=== PATIENT | male | born 1980 | race African-American/Black ===

== ENCOUNTER 2016-07-20 15:03 | Emergency (ER) | payer SELFPAY ==
[2016-07-20] MEDS ORDERED: ACETAMINOPHEN 325 MG TABLET PO ONE ×2 (15:36→20:29)
--- NOTE | 2016-07-20 15:36 | ER Document Report ---
ED Medical Screen (RME) - General Stated Complaint: THROAT PAIN Notes: Patient complains of severe sore throat for 3 weeks. Patient states he has a history of strep patient complains of chest congestion, with productive cough. Shortness of breath with coughing. Did not know he had a fever. States all symptoms have been ongoing for 3 weeks. Patient states he has occasional vomiting when he coughs. He thinks he might have pneumonia. I have greeted and performed a rapid initial assessment of this patient. A comprehensive ED assessment and evaluation of the patient, analysis of test results and completion of the medical decision making process will be conducted by additional ED providers. TRAVEL OUTSIDE OF THE [place] IN LAST 30 DAYS: No - Related Data Allergies/Adverse Reactions: No Known Allergies Allergy (Verified 07/20/16 15:35) Physical Exam - Vital signs Vitals: Temp Pulse Resp BP Pulse Ox 101.4 F H 114 H 14 142/93 H 95 07/20/16 15:06 07/20/16 15:06 07/20/16 15:06 07/20/16 15:06 07/20/16 15:06 - HEENT Notes: Oropharynx with moderate erythema, positive exudates. Lungs clear to auscultation, no respiratory distress. Course - Vital Signs Vital signs: Temp Pulse Resp BP Pulse Ox 101.4 F H 114 H 14 142/93 H 95 07/20/16 15:06 07/20/16 15:06 07/20/16 15:06 07/20/16 15:06 07/20/16 15:06
[2016-07-20] MEDS ORDERED: AZITHROMYCIN 250 MG TABLET PO ONE (19:46)
[2016-07-20] MEDS ORDERED: PREDNISONE 20 MG TABLET PO ONE (19:46)
[2016-07-20] MEDS ORDERED: IPRATROPIUM/ALBUTEROL 0.5-2.5 MG/3 ML AMPUL NEB ONE (19:46)
--- NOTE | 2016-07-20 19:46 | ER Document Report ---
HPI - HPI Patient complains to provider of: sore throat cough Onset: Other - 3 weeks Onset/Duration: Persistent Quality of pain: Achy Severity: Severe Pain Level: 5 Context: Patient presents to the emergency department with complaints of severe strep throat with shortness of breath coughing up sputum and severe pain when he coughs. Patient reports hot and cold chills unsure of fever. No c/o vomiting/ diarrhea. Denies past medical history. Has not been out of the country recently. Associated Symptoms: Productive cough, Fever, Sore throat Exacerbated by: Coughing, Deep breathing Relieved by: Denies Similar symptoms previously: No Recently seen / treated by doctor: No - DERM Skin Color: Normal Past Medical History - General Information source: Patient - Social History Smoking Status: Current Every Day Smoker Cigarette use (# per day): Yes Chew tobacco use (# tins/day): No Frequency of alcohol use: Occasional Drug Abuse: Cocaine, Marijuana Occupation: [employer] Lives with: Family Family History: Reviewed & Not Pertinent Patient has suicidal ideation: No Patient has homicidal ideation: No - Medical History Medical History: Negative Renal/ Medical History: Denies: Hx Peritoneal Dialysis Surgical Hx: Negative Vertical Provider Document - CONSTITUTIONAL Agree With Documented VS: Yes Exam Limitations: No Limitations General Appearance: WD/WN, No Apparent Distress - INFECTION CONTROL TRAVEL OUTSIDE OF THE [place] IN LAST 30 DAYS: No - HEENT HEENT: Atraumatic, Normocephalic, Pharyngeal Erythema - No peritonsillar abscess good clear voice no trismus. negative: Conjuctival Injection, Pharyngeal Exudate, Tympanic Membrane Red, Tympanic Membrane Bulging - NECK Neck: Normal Inspection, Supple. negative: Lymphadenopathy-Left, Lymphadenopathy-Right - RESPIRATORY Respiratory: No Respiratory Distress, Wheezing O2 Sat by Pulse Oximetry: 95 - CARDIOVASCULAR Cardiovascular: Regular Rhythm, Tachycardia - GI/ABDOMEN Gastrointestinal: Abdomen Soft, Abdomen Non-Tender - BACK Back: Normal Inspection - MUSCULOSKELETAL/EXTREMETIES Musculoskeletal/Extremeties: CARMINE LEBRON - NEURO Level of Consciousness: Awake, Alert, Appropriate Motor/Sensory: No Motor Deficit - DERM Integumentary: Warm, Dry Course - Re-evaluation Re-evalutation: 07/20/16 19:51 X-ray reviewed with Dr. bates. Airspace disease noted as pneumonia - Vital Signs Vital signs: Temp Pulse Resp BP Pulse Ox 101.4 F H 114 H 14 142/93 H 95 07/20/16 15:06 07/20/16 15:06 07/20/16 15:06 07/20/16 15:06 07/20/16 15:06 - Diagnostic Test Radiology reviewed: Image reviewed, Reports reviewed - IMPRESSION: Minimal airspace disease right middle lobe. Discharge - Discharge Clinical Impression: Cough, Sore throat, Elevated blood pressure reading Pneumonia Qualifiers: Pneumonia type: due to unspecified organism Laterality: right Lung location: middle lobe of lung Qualified Code(s): J18.1 - Lobar pneumonia, unspecified organism Condition: Stable Disposition: HOME, SELF-CARE Instructions: Sore Throat ([facility]), Oral Narcotic Medication ([facility]), Azithromycin ( [facility]), Steroid Medication, Pneumonia ([facility]) Additional Instructions: *You have been evaluated for a cough, pneumonia, sore throat, elevated blood pressure reading *Take medication as prescribed *With smoking *Increase fluids *Monitor your temperature, take Tylenol as indicated *Follow up with a primary care provider within one week for a recheck *Return to ED for increasing fever, cough, worsening condition, changes, needs, concerns Monitor your blood pressure. Your blood pressure was elevated today. This may be because you were anxious, in pain or because you need medication. It is important to follow up with your primary care provider for full evaluation. Prescriptions: Azithromycin [Zithromax] 250 mg PO DAILY #4 tablet Prednisone [Deltasone] 60 mg PO DAILY #9 tablet Forms: Elevated Blood Pressure, Smoking Cessation Education, Return to Work
[2016-07-20] MEDS ORDERED: HYDROCODONE/ACETAMINOPHEN 5-325 MG 6 TAB/DSPK PO PRN (20:27)
[2016-07-20 20:54] VITALS: BP 130/67
== END 2016-07-20 20:51 | disposition home or self-care (01) ==
LOC: ER 15:03
DX: J18.1 Lobar pneumonia, unspecified organism (principal); J02.9 Acute pharyngitis, unspecified; R05 Cough; R03.0 Elevated blood-pressure reading, without diagnosis of hypertension; R06.02 Shortness of breath; R50.9 Fever, unspecified; R00.0 Tachycardia, unspecified; F17.210 Nicotine dependence, cigarettes, uncomplicated
CPT/HCPCS: 94640; 99283; 87070; 87880; 71020; J7512; J7620

== ENCOUNTER 2016-07-25 10:36 | Inpatient (IN) | payer SELFPAY ==
--- NOTE | 2016-07-25 10:55 | ER Document Report ---
ED Medical Screen (RME) - General TRAVEL OUTSIDE OF THE [place] IN LAST 30 DAYS: No <SAUL BURNS - Last Filed: 07/25/16 10:48> <DEYSI MCGOWAN - Last Filed: 08/01/16 10:46> - General Stated Complaint: CHEST PAIN Notes: 35 yo male cough, fever, chest pain. midsternal pain with breathing, coughing. Pt was diagnosed with pneumonia 5 days ago, treated with Z pack. no improvement. + fever 103. + hx/o NC age 27 resp effort nonlabored, + wheeze and rhonchi right lung [place]. tachy 125 (SAUL BURNS) - Related Data Allergies/Adverse Reactions: No Known Allergies Allergy (Verified 07/25/16 10:51) Past Medical History Renal/ Medical History: Denies: Hx Peritoneal Dialysis <SAUL BURNS - Last Filed: 07/25/16 10:48> Course - Laboratory Result Diagrams: 07/26/16 07:53 07/28/16 13:35 <DEYSI MCGOWAN - Last Filed: 08/01/16 10:46> - Vital Signs Vital signs: Temp Pulse Resp BP Pulse Ox 97.5 F 80 16 145/90 H 99 07/30/16 10:04 07/30/16 10:04 07/30/16 10:04 07/30/16 10:04 07/30/16 10:04 - Laboratory Laboratory results interpreted by me: 07/25/16 07/25/16 07/25/16 11:23 11:23 12:11 WBC 19.4 H RBC 5.85 H MCV 79 L MCH 25.3 L RDW 14.2 H Plt Count 617 H Seg Neutrophils % 80.9 H Lymphocytes % 9.1 L Absolute Neutrophils 15.8 H Absolute Monocytes 1.8 H VBG pH 7.43 H Sodium 136.6 L Chloride 95 L Glucose 198 H AST 90 H ALT 291 H Doctor's Discharge <SAUL BURNS - Last Filed: 07/25/16 10:48> <DEYSI MCGOWAN - Last Filed: 08/01/16 10:46> - Discharge Clinical Impression: Pneumonia, Influenza A, Sepsis Condition: Stable Disposition: ADMITTED INPATIENT
[2016-07-25 11:39] LABS: ABSOLUTE BASOPHILS # (AUTO) 0.1 10^3/uL (0.0-0.2); ABSOLUTE EOSINOPHILS # (AUTO) 0.1 10^3/uL (0.0-0.6); ABSOLUTE LYMPHOCYTES (AUTO) 1.8 10^3/uL (0.5-4.7); ABSOLUTE MONOCYTES (AUTO) 1.8 10^3/uL (0.1-1.4); ABSOLUTE NEUT (AUTO) 15.8 10^3/uL (1.7-8.2); BASOPHILS % (AUTO) 0.3 % (0-2); EOSINOPHILS % (AUTO) 0.4 % (0-6); HEMATOCRIT 46.2 % (37.9-51.0); HEMOGLOBIN 14.8 g/dL (13.5-17.0); HGB HCT DIFFERENCE -1.8; LYMPHOCYTES % (AUTO) 9.1 % (13-45); MEAN CORPUSCULAR HEMOGLOBIN 25.3 pg (27.0-33.4); MEAN CORPUSCULAR VOLUME 79 fl (80-97); MONOCYTES % (AUTO) 9.3 % (3-13); RED BLOOD COUNT 5.85 10^6/uL (4.35-5.55); RED CELL DISTRIBUTION WIDTH 14.2 % (11.5-14.0); SEGMENTED NEUTROPHILS % (AUTO) 80.9 % (42-78); WHITE BLOOD COUNT 19.4 10^3/uL (4.0-10.5)
[2016-07-25] MEDS ORDERED: AZITHROMYCIN INJ 500 MG VIAL IV ONE (12:05)
[2016-07-25] MEDS ORDERED: ACETAMINOPHEN 325 MG TABLET PO ONE (12:08)
--- NOTE | 2016-07-25 12:08 | ER Document Report ---
ED Respiratory Problem - General Chief Complaint: Breathing Difficulty Stated Complaint: CHEST PAIN Notes: The patient is a 35-year-old male, current smoker, presents with 3 weeks of increasing shortness of breath and fevers. He is also having chest pain when he coughs. He was seen in the emergency room 5 days ago and diagnosed with pneumonia. He finished his azithromycin, but he still feels increasing shortness of breath. He did not get his flu shot this year. Denies leg swelling, hemoptysis, nausea, vomiting, chest pain at rest, back pain, abdominal pain or recent travel. TRAVEL OUTSIDE OF THE [place] IN LAST 30 DAYS: No - Related Data Allergies/Adverse Reactions: No Known Allergies Allergy (Verified 07/25/16 10:51) Past Medical History - General Information source: Patient - Social History Smoking Status: Current Every Day Smoker Chew tobacco use (# tins/day): No Frequency of alcohol use: None Drug Abuse: Marijuana Family History: Reviewed & Not Pertinent Patient has suicidal ideation: No Patient has homicidal ideation: No Renal/ Medical History: Denies: Hx Peritoneal Dialysis Review of Systems - Review of Systems Notes: REVIEW OF SYSTEMS: CONSTITUTIONAL: -fevers, -chills EENT: -eye pain, -difficulty swallowing, +nasal congestion CARDIOVASCULAR: +chest pain, -syncope. RESPIRATORY: +cough, +SOB GASTROINTESTINAL: -abdominal pain, -nausea, -vomiting, -diarrhea GENITOURINARY: -dysuria, -hematuria MUSCULOSKELETAL: -back pain, -neck pain SKIN: -rash or skin lesions. HEMATOLOGIC: -easy bruising or bleeding. LYMPHATIC: -swollen, enlarged glands. NEUROLOGICAL: -altered mental status or loss of consciousness, -headache, - neurologic symptoms PSYCHIATRIC: -anxiety, -depression. ALL OTHER SYSTEMS REVIEWED AND NEGATIVE. Physical Exam - Vital signs Vitals: Temp Pulse Resp BP Pulse Ox 101.0 F H 125 H 24 H 124/64 92 07/25/16 10:44 07/25/16 10:44 07/25/16 10:44 07/25/16 10:44 07/25/16 10:44 - Notes Notes: PHYSICAL EXAMINATION: GENERAL: No acute distress. HEAD: Atraumatic, normocephalic. EYES: Pupils equal round and reactive to light, extraocular movements intact, sclera anicteric, conjunctiva are normal. ENT: Clear rhinnorhea, nares patent, oropharynx clear without exudates. Moist mucous membranes. NECK: Normal range of motion, supple without lymphadenopathy LUNGS: Crackles right lower lobes, mildly tachypneic, no respiratory distress HEART: Tachycardic ABDOMEN: Soft, nontender, normoactive bowel sounds. No guarding, no rebound. No masses appreciated. EXTREMITIES: Normal range of motion, no pitting or edema. No cyanosis. NEUROLOGICAL: Cranial nerves grossly intact. Normal speech, normal gait. Normal sensory, motor, and reflex exams. PSYCH: Normal mood, normal affect. SKIN: Warm, Dry, normal turgor, no rashes or lesions noted. Course - Re-evaluation Re-evalutation: 07/25/16 13:34 Patient with worsening pneumonia compared to his x-ray 5 days ago , despite finishing a course of azithromycin. He is flu A positive here. Will begin IV treatment for MRSA pneumonia and admit. Patient's slight hypoxia (91% on RA) improved to 98% on 2 L nasal cannula. No respiratory distress at this time. Spoke to Dr. Cassidy and she has accepted patient as inpatient telemetry. - Vital Signs Vital signs: Temp Pulse Resp BP Pulse Ox 101.0 F H 125 H 24 H 124/64 92 07/25/16 10:44 07/25/16 10:44 07/25/16 10:44 07/25/16 10:44 07/25/16 10:44 - Laboratory Result Diagrams: 07/25/16 11:23 07/25/16 11:23 Laboratory results interpreted by me: 07/25/16 07/25/16 07/25/16 11:23 11:23 12:11 WBC 19.4 H RBC 5.85 H MCV 79 L MCH 25.3 L RDW 14.2 H Plt Count 617 H Seg Neutrophils % 80.9 H Lymphocytes % 9.1 L Absolute Neutrophils 15.8 H Absolute Monocytes 1.8 H VBG pH 7.43 H Sodium 136.6 L Chloride 95 L Glucose 198 H AST 90 H ALT 291 H - Diagnostic Test Radiology reviewed: Image reviewed, Reports reviewed Radiology results interpreted by me: CXR: Consolidation worrisome for pneumonia in the lateral segment right middle lobe, and in the right posterior lower lobe in the posterior costophrenic sulcus. Critical Care Note - Critical Care Note Total time excluding time spent on procedures (mins): 35 Discharge - Discharge Clinical Impression: Influenza A Pneumonia Qualifiers: Pneumonia type: due to unspecified organism Laterality: right Lung location: middle lobe of lung Qualified Code(s): J18.1 - Lobar pneumonia, unspecified organism Sepsis Qualifiers: Sepsis type: sepsis due to unspecified organism Qualified Code(s): A41.9 - Sepsis, unspecified organism Condition: Stable Disposition: ADMITTED INPATIENT Admitting Provider: Hospitalist - Dr. Cassidy Unit Admitted: Telemetry
[2016-07-25] MEDS ORDERED: LEVOFLOXACIN 750 MG/D5W RTU 150 ML IV PRN (12:13)
[2016-07-25 12:15] LABS: ALANINE AMINOTRANSFERASE 291 U/L (21-72); ALBUMIN 3.7 g/dL (3.5-5.0); ALKALINE PHOSPHATASE 115 U/L (38-126); ANION GAP 13 (5-19); ASPARTATE AMINO TRANSFERASE 90 U/L (17-59); BILIRUBIN,TOTAL 0.7 mg/dL (0.2-1.3); BLOOD UREA NITROGEN 13 mg/dL (7-20); CALCIUM 9.6 mg/dL (8.4-10.2); CARBON DIOXIDE 29 mmol/L (22-30); CHLORIDE 95 mmol/L (98-107); CREATININE RESULT 0.95 mg/dL (0.52-1.25); GLUCOSE 198 mg/dL (75-110); POTASSIUM 4.7 mmol/L (3.6-5.0); SODIUM 136.6 mmol/L (137-145); TOTAL PROTEIN 7.3 g/dL (6.3-8.2)
[2016-07-25] MEDS: NORMAL SALINE 1000 ML 1,000 ML IV PRN ×3 (12:23→17:31)
[2016-07-25 12:24] LABS: VENOUS BLOOD HCO3 26.5 mmol/L (20-32); VENOUS BLOOD PCO2 40.8 mmHg (35-63); VENOUS BLOOD PH 7.43 (7.30-7.42)
[2016-07-25] MEDS ORDERED: PIPERACILLIN/TAZOBACTAM 4.5 GM VIAL IV ONE (13:22)
[2016-07-25] MEDS ORDERED: VANCOMYCIN HCL INJ 1000 MG VIAL IV ONE (13:22)
[2016-07-25] MEDS ORDERED: ACETAMINOPHEN 325 MG TABLET PO PRN (14:07)
[2016-07-25] MEDS ORDERED: VANCOMYCIN HCL 0 MG in DEXTROSE 5%-WATER 250 ML IV NR (14:15)
[2016-07-25] MEDS ORDERED: PHARMACY COMMUNICATION ORDER MC NR (14:15)
[2016-07-25 15:07] LABS: APPEARANCE,URINE CLEAR; BILIRUBIN,URINE NEGATIVE (NEGATIVE); GLUCOSE, URINE NEGATIVE (NEGATIVE); KETONES,URINE NEGATIVE (NEGATIVE); LEUKOCYTE ESTERASE,URINE NEGATIVE (NEGATIVE); NITRITE,URINE NEGATIVE (NEGATIVE); PROTEIN,URINE NEGATIVE (NEGATIVE); URINE SPECIFIC GRAVITY 1.009; UROBILINOGEN,URINE NEGATIVE mg/dL (<2.0)
[2016-07-25 15:21] LABS: URINE BARBITURATES SCREEN NEGATIVE; URINE METHADONE SCREEN NEGATIVE; URINE OPIATES LOW NEGATIVE; URINE PHENCYCLIDINE SCREEN NEGATIVE
[2016-07-25] MEDS ORDERED: ENOXAPARIN SODIUM INJ 40 MG/0.4 ML DISP.SYRIN SUBCUT ONE (15:30)
[2016-07-25] MEDS ORDERED: IBUPROFEN 600 MG TABLET PO PRN (16:35)
--- NOTE | 2016-07-25 17:51 | PDOC H&P ---
History of Present Illness Admission Date/PCP: 07/25/16 14:07 History of Present Illness: KALYN COLLINS is a 35 year old male with no significant past medical history who presents to the emergency department with complaints of 3 weeks of cough and shortness of breath. Patient reports that his prodrome began with a sore throat that he reports was slightly improved with penicillin initially that he had from an old urinary tract infection, but began to worsen. He reports that he has a cough productive of green yellow and dominguez sputum. He reports over the last 72 hours he's been having bodyaches, worsening cough, and muscle pain. Patient presented here to the emergency department 4 days ago and was placed on azithromycin for pneumonia. Patient currently is here and found to have influenza as well as a worsening pneumonia now requiring oxygen. He is referred to hospital service for this. Past Medical History Medical History: None Past Surgical History Past Surgical History: Reports: None Social History Smoking Status: Current Some Day Smoker Frequency of Alcohol Use: Rare Hx Recreational Drug Use: Yes Drugs: Cocaine, Marijuana Hx Prescription Drug Abuse: No - Advance Directive Resuscitation Status: Full Code Surrogate healthcare decision maker:: Mother Family History Family History: Malignancy Parental Family History Reviewed: Yes Children Family History Reviewed: Yes Sibling(s) Family History Reviewed.: Yes Medication/Allergy Home Medications: No Home Medications 07/25/16 Allergies/Adverse Reactions: No Known Allergies Allergy (Verified 07/25/16 10:51) Review of Systems Constitutional: PRESENT: chills, fatigue, fever(s), headache(s). ABSENT: weight gain, weight loss Eyes: ABSENT: visual disturbances Ears: ABSENT: hearing changes Nose, Mouth, and Throat: PRESENT: sore throat Cardiovascular: ABSENT: chest pain, dyspnea on exertion, edema, orthropnea, palpitations Respiratory: PRESENT: cough, sputum. ABSENT: dyspnea, hemoptysis Gastrointestinal: ABSENT: abdominal pain, constipation, diarrhea, dysphagia, heartburn, hematemesis, hematochezia, melena, nausea, vomiting Genitourinary: ABSENT: dysuria, hematuria Musculoskeletal: ABSENT: joint swelling Integumentary: PRESENT: rash - On head chest and leg. ABSENT: wounds Neurological: ABSENT: abnormal gait, abnormal speech, confusion, dizziness, focal weakness, syncope Psychiatric: ABSENT: anxiety, depression, homidical ideation, suicidal ideation Endocrine: ABSENT: cold intolerance, heat intolerance, polydipsia, polyuria Hematologic/Lymphatic: ABSENT: easy bleeding, easy bruising Physical Exam Vital Signs: Temp Pulse Resp BP Pulse Ox 101.0 F H 125 H 22 H 121/87 H 98 07/25/16 10:44 07/25/16 10:44 07/25/16 14:01 07/25/16 14:01 07/25/16 14:01 General appearance: PRESENT: mild distress - Acutely ill-appearing, well- developed, well-nourished Head exam: PRESENT: atraumatic, normocephalic Eye exam: PRESENT: conjunctiva pink, EOMI, PERRLA. ABSENT: scleral icterus Ear exam: PRESENT: normal external ear exam Mouth exam: PRESENT: dry mucosa, tongue midline Neck exam: PRESENT: lymphadenopathy. ABSENT: JVD, thyromegaly, tracheal deviation Respiratory exam: PRESENT: rhonchi - Left lower lobe, symmetrical, unlabored. ABSENT: accessory muscle use, rales, tachypnea, wheezes Cardiovascular exam: PRESENT: RRR, +S1, +S2. ABSENT: diastolic murmur, gallop, rubs, systolic murmur Pulses: PRESENT: normal dorsalis pedis pul Vascular exam: PRESENT: normal capillary refill GI/Abdominal exam: PRESENT: normal bowel sounds, soft. ABSENT: distended, firm , guarding, mass, Oates's sign, organolmegaly, rebound, rigid, tenderness Rectal exam: PRESENT: deferred Extremities exam: PRESENT: full ROM. ABSENT: calf tenderness, clubbing, pedal edema Neurological exam: PRESENT: alert, awake, oriented to person, oriented to place , oriented to time, oriented to situation, CN II-XII grossly intact. ABSENT: motor sensory deficit Psychiatric exam: PRESENT: appropriate affect, normal mood. ABSENT: homicidal ideation, suicidal ideation Skin exam: PRESENT: dry, intact, rash - Circular rash with central area of clearing without erythema, scaly, warm. ABSENT: cyanosis Results Laboratory Results: 07/25/16 14:40 Urine Color STRAW Urine Appearance CLEAR Urine pH 6.0 Ur Specific [place] 1.009 Urine Protein NEGATIVE Urine Glucose (UA) NEGATIVE Urine Ketones NEGATIVE Urine Blood NEGATIVE Urine Nitrite NEGATIVE Ur Leukocyte Esterase NEGATIVE Impressions: Chest X-Ray 07/25/16 10:57 IMPRESSION: Consolidation worrisome for pneumonia in the lateral segment right middle lobe, and in the right posterior lower lobe in the posterior costophrenic sulcus Assessment & Plan - Diagnosis (1) Sepsis Qualifiers: Sepsis type: sepsis due to unspecified organism Qualified Code(s): A41.9 - Sepsis, unspecified organism Is this a current diagnosis for this admission?: YesPlan: Underlying sepsis due to pneumonia as well as influenza a. (2) Pneumonia Qualifiers: Pneumonia type: due to unspecified organism Laterality: right Lung location: middle lobe of lung Qualified Code(s): J18.1 - Lobar pneumonia , unspecified organism Is this a current diagnosis for this admission?: YesPlan: Patient has a right middle lobe pneumonia, clinically on physical examination he also sounds as though he has multilobar involvement particularly with left lower lobe. Have initiated patient on vancomycin with concern for MRSA in light of influenza, Zosyn as patient did present with a right middle lobe infiltrate and does describe to some GI symptoms, and also to Levaquin for atypical coverage. At this time it is difficult to tell the etiology of patient 's pneumonic process. Patient also does report that he last smoked cocaine one month ago. Will check patient for HIV. (3) Influenza A Is this a current diagnosis for this admission?: YesPlan: We'll place patient on Tamiflu. Droplet precautions (4) Hyperglycemia, drug-induced Is this a current diagnosis for this admission?: YesPlan: We'll check hemoglobin A1c. Patient was prescribed a steroid here 4 days ago. He does have acanthosis nigricans (5) Tobacco abuse Is this a current diagnosis for this admission?: YesPlan: Patient has been counseled on cessation and offered nicotine replacement. (6) Tinea corporis Is this a current diagnosis for this admission?: YesPlan: We'll place code Chlortrimazole ointment on twice a day to affected leg and abdomen. (7) Tinea capitis Is this a current diagnosis for this admission?: Yes - Time Time Spent: 50 to 70 Minutes Smoking Cessation Education: 3 to 10 minutes Medications reviewed and adjusted accordingly: Yes Anticipated discharge: Home Within: within 72 hours - Inpatient Certification Based on my medical assessment, after consideration of the patient's comorbidities, presenting symptoms, or acuity I expect that the services needed warrant INPATIENT care.: Yes I certify that my determination is in accordance with my understanding of Medicare's requirements for reasonable and necessary INPATIENT services [42 CFR 412.3e].: Yes Medical Necessity: Failure to Improve With Outpatient Therapy, Need For IV Fluids, Need for Nebulizer Therapy and Monitoring of Response, Need for IV Antibiotics Post Hospital Care: D/C Sketcher Documentation
[2016-07-25] MEDS ORDERED: OSELTAMIVIR PHOSPHATE 75 MG CAPSULE PO SCH (18:00)
[2016-07-25 18:54] LABS: ADD HIVPANEL? NO; HIV (1 AND 2) ANTIBODY NEGATIVE (NEGATIVE)
[2016-07-25] MEDS: ALBUTEROL SULFATE 0.083% NEB 2.5 MG/3 ML AMPUL NEB SCH (20:33)
[2016-07-25] MEDS: GUAIFENESIN 600 MG TABLET.SA PO SCH (21:54)
[2016-07-25] MEDS: FAMOTIDINE 20 MG TABLET PO SCH (21:54)
[2016-07-25] MEDS: PIPERACILLIN SODIUM/TAZOBACTAM 3.375 GM in NORMAL SALINE 100 ML IV SCH (21:55)
[2016-07-25] MEDS: CLOTRIMAZOLE 1% CREAM 15 GM TP SCH (21:55)
[2016-07-25] MEDS: VANCOMYCIN HCL 1,000 MG in DEXTROSE 5%-WATER 250 ML IV SCH (22:40)
[2016-07-26] MEDS: OXYCODONE-ACETAMINOPHEN 5-325 MG TABLET PO PRN ×3 (01:26→22:10)
[2016-07-26] MEDS ORDERED: INFLUENZA ADLT QUAD (36MOS+) 2016-17 VAC 0.5 ML SYR IM PRN (03:17)
[2016-07-26] MEDS: NORMAL SALINE 1000 ML 1,000 ML IV PRN (03:49)
[2016-07-26] MEDS: PIPERACILLIN SODIUM/TAZOBACTAM 3.375 GM in NORMAL SALINE 100 ML IV SCH ×3 (03:49→14:34)
[2016-07-26] MEDS: VANCOMYCIN HCL 1,000 MG in DEXTROSE 5%-WATER 250 ML IV SCH ×2 (05:16→14:33)
[2016-07-26 05:47] LABS: ANION GAP 11 (5-19); BLOOD UREA NITROGEN 12 mg/dL (7-20); CALCIUM 9.1 mg/dL (8.4-10.2); CARBON DIOXIDE 29 mmol/L (22-30); CHLORIDE 102 mmol/L (98-107); CREATININE RESULT 0.99 mg/dL (0.52-1.25); GLUCOSE 128 mg/dL (75-110); POTASSIUM 4.9 mmol/L (3.6-5.0)
[2016-07-26 08:10] LABS: ABSOLUTE BASOPHILS # (AUTO) 0.1 10^3/uL (0.0-0.2); ABSOLUTE EOSINOPHILS # (AUTO) 0.3 10^3/uL (0.0-0.6); ABSOLUTE LYMPHOCYTES (AUTO) 2.4 10^3/uL (0.5-4.7); BASOPHILS % (AUTO) 0.7 % (0-2); HEMATOCRIT 39.7 % (37.9-51.0); HEMOGLOBIN 13.1 g/dL (13.5-17.0); HGB HCT DIFFERENCE -0.4; LYMPHOCYTES % (AUTO) 17.2 % (13-45); MEAN CORPUSCULAR HEMOGLOBIN 26.1 pg (27.0-33.4); MEAN CORPUSCULAR VOLUME 79 fl (80-97); MONOCYTES % (AUTO) 14.6 % (3-13); RED BLOOD COUNT 5.02 10^6/uL (4.35-5.55); RED CELL DISTRIBUTION WIDTH 14.2 % (11.5-14.0); SEGMENTED NEUTROPHILS % (AUTO) 65.5 % (42-78); WHITE BLOOD COUNT 13.8 10^3/uL (4.0-10.5)
[2016-07-26 08:21] LABS: ANION GAP 8 (5-19); BLOOD UREA NITROGEN 12 mg/dL (7-20); CARBON DIOXIDE 30 mmol/L (22-30); CHLORIDE 103 mmol/L (98-107); CREATININE RESULT 0.85 mg/dL (0.52-1.25); GLUCOSE 162 mg/dL (75-110); POTASSIUM 4.4 mmol/L (3.6-5.0); SODIUM 140.5 mmol/L (137-145)
[2016-07-26] MEDS: ALBUTEROL SULFATE 0.083% NEB 2.5 MG/3 ML AMPUL NEB SCH ×3 (09:00→20:55)
[2016-07-26] MEDS: LEVOFLOXACIN 750 MG TABLET PO SCH (09:34)
[2016-07-26] MEDS: FAMOTIDINE 20 MG TABLET PO SCH ×2 (09:34→22:11)
[2016-07-26] MEDS: ENOXAPARIN SODIUM INJ 40 MG/0.4 ML DISP.SYRIN SUBCUT SCH (09:34)
[2016-07-26] MEDS: GUAIFENESIN 600 MG TABLET.SA PO SCH ×2 (09:34→22:00)
[2016-07-26] MEDS: CLOTRIMAZOLE 1% CREAM 15 GM TP SCH ×2 (09:35→22:10)
[2016-07-26] MEDS ORDERED: CEFTRIAXONE 1 GM/D5W RTU 50 ML IV SCH (10:00)
[2016-07-26] MEDS: OSELTAMIVIR PHOSPHATE 75 MG CAPSULE PO SCH ×2 (11:13→22:10)
--- NOTE | 2016-07-26 11:18 | EKG REPORT ---
SEVERITY:- BORDERLINE ECG - SINUS TACHYCARDIA PROBABLE LEFT ATRIAL ABNORMALITY : Confirmed by: Bianca Quesada 26-Jul-2016 11:17:04
[2016-07-26 14:14] LABS: CREATININE RESULT 0.88 mg/dL (0.52-1.25)
--- NOTE | 2016-07-26 14:46 | PDOC PROGRESS REPORT ---
Subjective Progress Note for:: 07/26/16 Subjective:: Patient reports he's feeling significantly improved today. Patient denies chest pain, shortness of breath, abdominal pain, nausea, vomiting, fevers, chills, diarrhea, constipation, headache, new onset weakness. Physical Exam Vital Signs: Temp Pulse Resp BP Pulse Ox 98.5 F 91 19 135/73 H 98 07/26/16 11:39 07/26/16 14:00 07/26/16 11:39 07/26/16 11:39 07/26/16 11:39 Intake & Output 07/25/16 07/26/16 07/27/16 06:59 06:59 06:59 Intake Total 1228 592 Balance 1228 592 Weight 96.2 kg Exam: General: Awake alert and oriented x3, no acute respiratory distress HEENT: AT/NC, PERRL, EOMI, oropharynx is moist, pink, no scleral icterus, no conjunctival injection Neck: No JVD, trachea midline Chest: Occasional Rhonchi CV: Regular rate and rhythm, normal S1 and S2, no murmur, rub, or gallop Abdomen: Soft, nontender to palpation, nondistended, active bowel sounds; no rebound, rigidity, or guarding Extremities: No cyanosis, clubbing or edema Neuro: Cranial nerves II through XII are grossly intact without focal deficits; awake alert and orientedx3 Psych: Normal mood and affect Results Laboratory Results: 07/26/16 07:53 07/26/16 13:49 07/25/16 07/26/16 07/26/16 14:40 05:13 07:53 WBC 13.8 H RBC 5.02 Hgb 13.1 L Hct 39.7 MCV 79 L MCH 26.1 L MCHC 33.0 RDW 14.2 H Plt Count 467 H Seg Neutrophils % 65.5 Lymphocytes % 17.2 Monocytes % 14.6 H Eosinophils % 2.0 Basophils % 0.7 Absolute Neutrophils 9.0 H Absolute Lymphocytes 2.4 Absolute Monocytes 2.0 H Absolute Eosinophils 0.3 Absolute Basophils 0.1 Sodium 142.0 Potassium 4.9 Chloride 102 Carbon Dioxide 29 Anion Gap 11 BUN 12 Creatinine 0.99 Est GFR ( Amer) > 60 Est GFR (Non-Af Amer) > 60 Glucose 128 H Calcium 9.1 Urine Color STRAW Urine Appearance CLEAR Urine pH 6.0 Ur Specific [place] 1.009 Urine Protein NEGATIVE Urine Glucose (UA) NEGATIVE Urine Ketones NEGATIVE Urine Blood NEGATIVE Urine Nitrite NEGATIVE Ur Leukocyte Esterase NEGATIVE 07/26/16 07/26/16 07:53 13:49 WBC RBC Hgb Hct MCV MCH MCHC RDW Plt Count Seg Neutrophils % Lymphocytes % Monocytes % Eosinophils % Basophils % Absolute Neutrophils Absolute Lymphocytes Absolute Monocytes Absolute Eosinophils Absolute Basophils Sodium 140.5 Potassium 4.4 Chloride 103 Carbon Dioxide 30 Anion Gap 8 BUN 12 Creatinine 0.85 0.88 Est GFR ( Amer) > 60 > 60 Est GFR (Non-Af Amer) > 60 > 60 Glucose 162 H Calcium 9.0 Urine Color Urine Appearance Urine pH Ur Specific [place] Urine Protein Urine Glucose (UA) Urine Ketones Urine Blood Urine Nitrite Ur Leukocyte Esterase Impressions: Chest X-Ray 07/25/16 10:57 IMPRESSION: Consolidation worrisome for pneumonia in the lateral segment right middle lobe, and in the right posterior lower lobe in the posterior costophrenic sulcus Assessment & Plan - Diagnosis (1) Sepsis Qualifiers: Sepsis type: sepsis due to unspecified organism Qualified Code(s): A41.9 - Sepsis, unspecified organism Is this a current diagnosis for this admission?: YesPlan: Underlying sepsis due to pneumonia as well as influenza a. (2) Pneumonia Qualifiers: Pneumonia type: due to unspecified organism Laterality: right Lung location: middle lobe of lung Qualified Code(s): J18.1 - Lobar pneumonia , unspecified organism Is this a current diagnosis for this admission?: YesPlan: Patient has a right middle lobe pneumonia, clinically on physical examination he also sounds as though he has multilobar involvement particularly with left lower lobe. Have initiated patient on vancomycin with concern for MRSA in light of influenza, and also to Levaquin for atypical coverage. At this time it is difficult to tell the etiology of patient's pneumonic process. Patient also does report that he last smoked cocaine one month ago. HIV is negative. Stop Zosyn. Patient reports that his indigestion-like symptoms are not profound. (3) Influenza A Is this a current diagnosis for this admission?: YesPlan: We'll place patient on Tamiflu. Droplet precautions (4) Tobacco abuse Is this a current diagnosis for this admission?: YesPlan: Patient has been counseled on cessation and offered nicotine replacement. (5) Tinea corporis Is this a current diagnosis for this admission?: Yes (6) Tinea capitis Is this a current diagnosis for this admission?: Yes (7) Prediabetes Is this a current diagnosis for this admission?: YesPlan: On presentation patient was found to have impaired glucose and hemoglobin A1c reveals 6. Patient additionally has acanthosis nigricans on his neck. - Time Critical Time spent with patient: 35 or more minutes Medications reviewed and adjusted accordingly: Yes Anticipated discharge: Home Within: within 48 hours
[2016-07-26] MEDS: BENZONATATE 100 MG CAPSULE PO PRN (15:45)
[2016-07-26] MEDS: PHENOL/SODIUM PHENOLATE 100 SPRAY/177 ML BOTTLE PO PRN (15:49)
[2016-07-26] MEDS ORDERED: ALBUTEROL SULFATE 0.083% NEB 2.5 MG/3 ML AMPUL NEB ONE (16:12)
[2016-07-26] MEDS: VANCOMYCIN HCL 1,500 MG in DEXTROSE 5%-WATER 250 ML IV SCH (22:17)
[2016-07-27] MEDS: VANCOMYCIN HCL 1,500 MG in DEXTROSE 5%-WATER 250 ML IV SCH ×3 (06:04→21:12)
[2016-07-27] MEDS: BENZONATATE 100 MG CAPSULE PO PRN ×2 (06:22→16:07)
[2016-07-27] MEDS: ALBUTEROL SULFATE 0.083% NEB 2.5 MG/3 ML AMPUL NEB SCH ×2 (08:54→14:11)
[2016-07-27] MEDS: ENOXAPARIN SODIUM INJ 40 MG/0.4 ML DISP.SYRIN SUBCUT SCH (09:19)
[2016-07-27] MEDS: CLOTRIMAZOLE 1% CREAM 15 GM TP SCH ×2 (09:19→22:00)
[2016-07-27] MEDS: LEVOFLOXACIN 750 MG TABLET PO SCH (09:20)
[2016-07-27] MEDS: FAMOTIDINE 20 MG TABLET PO SCH ×2 (09:20→21:12)
[2016-07-27] MEDS: OSELTAMIVIR PHOSPHATE 75 MG CAPSULE PO SCH ×2 (09:20→21:12)
[2016-07-27] MEDS: GUAIFENESIN 600 MG TABLET.SA PO SCH ×2 (09:21→21:14)
[2016-07-27] MEDS: OXYCODONE-ACETAMINOPHEN 5-325 MG TABLET PO PRN ×3 (09:27→21:12)
--- NOTE | 2016-07-27 16:53 | PDOC PROGRESS REPORT ---
Subjective Progress Note for:: 07/27/16 Subjective:: Patient reports she's feeling significantly better. Patient denies chest pain, shortness of breath, abdominal pain, nausea, vomiting, fevers, chills, diarrhea , constipation, headache, new onset weakness. Physical Exam Vital Signs: Temp Pulse Resp BP Pulse Ox 98.5 F 104 H 16 149/84 H 92 07/27/16 03:44 07/27/16 03:44 07/27/16 03:44 07/27/16 03:44 07/27/16 03:44 Intake & Output 07/26/16 07/27/16 07/28/16 06:59 06:59 06:59 Intake Total 1228 3331 Balance 1228 3331 Weight 96.2 kg 96.4 kg Exam: General: Awake alert and oriented x3, no acute respiratory distress HEENT: AT/NC, PERRL, EOMI, oropharynx is moist, pink, no scleral icterus, no conjunctival injection Neck: No JVD, trachea midline Chest: Occasional Rhonchi CV: Regular rate and rhythm, normal S1 and S2, no murmur, rub, or gallop Abdomen: Soft, nontender to palpation, nondistended, active bowel sounds; no rebound, rigidity, or guarding Extremities: No cyanosis, clubbing or edema Neuro: Cranial nerves II through XII are grossly intact without focal deficits; awake alert and orientedx3 Psych: Normal mood and affect Results Laboratory Results: 07/26/16 07:53 07/26/16 13:49 07/26/16 07/26/16 07/26/16 07:53 07:53 13:49 WBC 13.8 H RBC 5.02 Hgb 13.1 L Hct 39.7 MCV 79 L MCH 26.1 L MCHC 33.0 RDW 14.2 H Plt Count 467 H Seg Neutrophils % 65.5 Lymphocytes % 17.2 Monocytes % 14.6 H Eosinophils % 2.0 Basophils % 0.7 Absolute Neutrophils 9.0 H Absolute Lymphocytes 2.4 Absolute Monocytes 2.0 H Absolute Eosinophils 0.3 Absolute Basophils 0.1 Sodium 140.5 Potassium 4.4 Chloride 103 Carbon Dioxide 30 Anion Gap 8 BUN 12 Creatinine 0.85 0.88 Est GFR ( Amer) > 60 > 60 Est GFR (Non-Af Amer) > 60 > 60 Glucose 162 H Calcium 9.0 Impressions: Chest X-Ray 07/25/16 10:57 IMPRESSION: Consolidation worrisome for pneumonia in the lateral segment right middle lobe, and in the right posterior lower lobe in the posterior costophrenic sulcus Assessment & Plan - Diagnosis (1) Sepsis Qualifiers: Sepsis type: sepsis due to unspecified organism Qualified Code(s): A41.9 - Sepsis, unspecified organism Is this a current diagnosis for this admission?: YesPlan: Underlying sepsis due to pneumonia as well as influenza a. (2) Pneumonia Qualifiers: Pneumonia type: due to unspecified organism Laterality: right Lung location: middle lobe of lung Qualified Code(s): J18.1 - Lobar pneumonia , unspecified organism Is this a current diagnosis for this admission?: YesPlan: Patient has a right middle lobe pneumonia, clinically on physical examination he also sounds as though he has multilobar involvement particularly with left lower lobe. Have initiated patient on vancomycin with concern for MRSA in light of influenza, and also to Levaquin for atypical coverage. At this time it is difficult to tell the etiology of patient's pneumonic process. Patient also does report that he last smoked cocaine one month ago. HIV is negative. Stop Zosyn. Patient reports that his indigestion-like symptoms are not profound. (3) Influenza A Is this a current diagnosis for this admission?: YesPlan: on Tamiflu. Droplet precautions (4) Tobacco abuse Is this a current diagnosis for this admission?: Yes (5) Tinea corporis Is this a current diagnosis for this admission?: Yes (6) Tinea capitis Is this a current diagnosis for this admission?: Yes (7) Prediabetes Is this a current diagnosis for this admission?: Yes - Time Time Spent with patient: 25-34 minutes Medications reviewed and adjusted accordingly: Yes Anticipated discharge: Home Within: within 48 hours
[2016-07-27] MEDS: PREDNISONE 20 MG TABLET PO SCH (17:37)
[2016-07-28] MEDS: BENZONATATE 100 MG CAPSULE PO PRN ×3 (00:12→21:42)
[2016-07-28] MEDS: OXYCODONE-ACETAMINOPHEN 5-325 MG TABLET PO PRN ×3 (01:06→19:53)
[2016-07-28] MEDS: VANCOMYCIN HCL 1,500 MG in DEXTROSE 5%-WATER 250 ML IV SCH ×3 (05:13→21:41)
[2016-07-28] MEDS: ENOXAPARIN SODIUM INJ 40 MG/0.4 ML DISP.SYRIN SUBCUT SCH (07:43)
[2016-07-28] MEDS: CLOTRIMAZOLE 1% CREAM 15 GM TP SCH ×2 (09:42→21:42)
[2016-07-28] MEDS: OSELTAMIVIR PHOSPHATE 75 MG CAPSULE PO SCH ×2 (09:43→21:42)
[2016-07-28] MEDS: PREDNISONE 20 MG TABLET PO SCH ×2 (09:43→17:33)
[2016-07-28] MEDS: FAMOTIDINE 20 MG TABLET PO SCH ×2 (09:43→21:42)
[2016-07-28] MEDS: LEVOFLOXACIN 750 MG TABLET PO SCH (09:43)
[2016-07-28] MEDS: GUAIFENESIN 600 MG TABLET.SA PO SCH ×2 (09:44→21:49)
[2016-07-28] MEDS: ALBUTEROL SULFATE 0.083% NEB 2.5 MG/3 ML AMPUL NEB PRN ×2 (10:33→20:04)
--- NOTE | 2016-07-28 20:41 | PDOC PROGRESS REPORT ---
Subjective Progress Note for:: 07/28/16 Subjective:: Patient is in the company of his daughter. Patient denies chest pain, shortness of breath, abdominal pain, nausea, vomiting , fevers, chills, diarrhea, constipation, headache, new onset weakness. Physical Exam Vital Signs: Temp Pulse Resp BP Pulse Ox 98.7 F 88 20 117/75 96 07/27/16 20:48 07/28/16 08:00 07/28/16 08:00 07/28/16 08:00 07/28/16 08:00 Intake & Output 07/27/16 07/28/16 07/29/16 06:59 06:59 06:59 Intake Total 3331 2435 Output Total 350 Balance 3331 2085 Weight 96.4 kg Exam: General: Awake alert and oriented x3, no acute respiratory distress HEENT: AT/NC, PERRL, EOMI, oropharynx is moist, pink, no scleral icterus, no conjunctival injection Neck: No JVD, trachea midline Chest: Clear to auscultation bilaterally CV: Regular rate and rhythm, normal S1 and S2, no murmur, rub, or gallop Abdomen: Soft, nontender to palpation, nondistended, active bowel sounds; no rebound, rigidity, or guarding Extremities: No cyanosis, clubbing or edema Neuro: Cranial nerves II through XII are grossly intact without focal deficits; awake alert and orientedx3 Psych: Normal mood and affect Results Laboratory Results: 07/26/16 07:53 07/26/16 13:49 Impressions: Chest X-Ray 07/25/16 10:57 IMPRESSION: Consolidation worrisome for pneumonia in the lateral segment right middle lobe, and in the right posterior lower lobe in the posterior costophrenic sulcus Assessment & Plan - Diagnosis (1) Sepsis Qualifiers: Sepsis type: sepsis due to unspecified organism Qualified Code(s): A41.9 - Sepsis, unspecified organism Is this a current diagnosis for this admission?: YesPlan: Underlying sepsis due to pneumonia as well as influenza a. (2) Pneumonia Qualifiers: Pneumonia type: due to unspecified organism Laterality: right Lung location: middle lobe of lung Qualified Code(s): J18.1 - Lobar pneumonia , unspecified organism Is this a current diagnosis for this admission?: YesPlan: Likely community-acquired. Patient currently growing gram-positive cocci in clusters. Continue vancomycin day #3 and Levaquin day #3 for this. (3) Influenza A Is this a current diagnosis for this admission?: YesPlan: on Tamiflu. Droplet precautions (4) Tobacco abuse Is this a current diagnosis for this admission?: Yes (5) Tinea corporis Is this a current diagnosis for this admission?: Yes (6) Tinea capitis Is this a current diagnosis for this admission?: Yes (7) Prediabetes Is this a current diagnosis for this admission?: Yes - Time Time Spent with patient: 15-24 minutes Medications reviewed and adjusted accordingly: Yes Anticipated discharge: Home Within: within 24 hours
[2016-07-29] MEDS: OXYCODONE-ACETAMINOPHEN 5-325 MG TABLET PO PRN ×5 (00:09→23:42)
[2016-07-29] MEDS: VANCOMYCIN HCL 1,500 MG in DEXTROSE 5%-WATER 250 ML IV SCH ×2 (05:18→13:22)
[2016-07-29] MEDS: ALBUTEROL SULFATE 0.083% NEB 2.5 MG/3 ML AMPUL NEB PRN ×3 (08:18→22:44)
[2016-07-29] MEDS: LEVOFLOXACIN 750 MG TABLET PO SCH (09:06)
[2016-07-29] MEDS: ENOXAPARIN SODIUM INJ 40 MG/0.4 ML DISP.SYRIN SUBCUT SCH (09:06)
[2016-07-29] MEDS: OSELTAMIVIR PHOSPHATE 75 MG CAPSULE PO SCH ×2 (09:06→21:13)
[2016-07-29] MEDS: PREDNISONE 20 MG TABLET PO SCH ×2 (09:07→17:23)
[2016-07-29] MEDS: FAMOTIDINE 20 MG TABLET PO SCH ×2 (09:07→21:13)
[2016-07-29] MEDS: CLOTRIMAZOLE 1% CREAM 15 GM TP SCH ×2 (09:07→21:13)
[2016-07-29] MEDS: GUAIFENESIN 600 MG TABLET.SA PO SCH ×2 (09:12→21:09)
--- NOTE | 2016-07-29 16:59 | PDOC PROGRESS REPORT ---
Subjective Progress Note for:: 07/29/16 Subjective:: Patient is in the company of his daughter. Patient denies chest pain, shortness of breath, abdominal pain, nausea, vomiting , fevers, chills, diarrhea, constipation, headache, new onset weakness. Physical Exam Vital Signs: Temp Pulse Resp BP Pulse Ox 98.4 F 100 20 129/77 H 96 07/29/16 16:12 07/29/16 16:12 07/29/16 16:12 07/29/16 16:12 07/29/16 16:12 Intake & Output 07/28/16 07/29/16 07/30/16 06:59 06:59 06:59 Intake Total 2435 2870 1600 Output Total 350 Balance 2085 2870 1600 Weight 80.6 kg Exam: General: Awake alert and oriented x3, no acute respiratory distress HEENT: AT/NC, PERRL, EOMI, oropharynx is moist, pink, no scleral icterus, no conjunctival injection Neck: No JVD, trachea midline Chest: Clear to auscultation bilaterally CV: Regular rate and rhythm, normal S1 and S2, no murmur, rub, or gallop Abdomen: Soft, nontender to palpation, nondistended, active bowel sounds; no rebound, rigidity, or guarding Extremities: No cyanosis, clubbing or edema Neuro: Cranial nerves II through XII are grossly intact without focal deficits; awake alert and orientedx3 Psych: Normal mood and affect Results Laboratory Results: 07/26/16 07:53 07/28/16 13:35 Impressions: Chest X-Ray 07/25/16 10:57 IMPRESSION: Consolidation worrisome for pneumonia in the lateral segment right middle lobe, and in the right posterior lower lobe in the posterior costophrenic sulcus Assessment & Plan - Diagnosis (1) Sepsis Qualifiers: Sepsis type: sepsis due to unspecified organism Qualified Code(s): A41.9 - Sepsis, unspecified organism Is this a current diagnosis for this admission?: YesPlan: Underlying sepsis due to pneumonia as well as influenza a. (2) Pneumonia Qualifiers: Pneumonia type: due to unspecified organism Laterality: right Lung location: middle lobe of lung Qualified Code(s): J18.1 - Lobar pneumonia , unspecified organism Is this a current diagnosis for this admission?: YesPlan: Likely community-acquired. Patient currently growing gram-positive cocci in clusters. Likely MRSA. Continue vancomycin day #4 and Levaquin day #4 for this. (3) Influenza A Is this a current diagnosis for this admission?: YesPlan: on Tamiflu. Droplet precautions (4) Tobacco abuse Is this a current diagnosis for this admission?: Yes (5) Tinea corporis Is this a current diagnosis for this admission?: Yes (6) Tinea capitis Is this a current diagnosis for this admission?: Yes (7) Prediabetes Is this a current diagnosis for this admission?: Yes - Time Time Spent with patient: 25-34 minutes Medications reviewed and adjusted accordingly: Yes Anticipated discharge: Home Within: within 24 hours
[2016-07-29] MEDS: BENZONATATE 100 MG CAPSULE PO PRN (17:24)
[2016-07-29] MEDS ORDERED: LINEZOLID 600 MG TABLET ONE (21:13)
[2016-07-29] MEDS ORDERED: LINEZOLID 600 MG TABLET PO SCH (22:00)
[2016-07-30] MEDS: ENOXAPARIN SODIUM INJ 40 MG/0.4 ML DISP.SYRIN SUBCUT SCH (08:42)
[2016-07-30] MEDS: BENZONATATE 100 MG CAPSULE PO PRN (08:42)
[2016-07-30] MEDS: OXYCODONE-ACETAMINOPHEN 5-325 MG TABLET PO PRN (08:42)
[2016-07-30] MEDS: PHENOL/SODIUM PHENOLATE 100 SPRAY/177 ML BOTTLE PO PRN (08:43)
[2016-07-30] MEDS: ALBUTEROL SULFATE 0.083% NEB 2.5 MG/3 ML AMPUL NEB PRN (08:48)
[2016-07-30 10:10] VITALS: BP 145/90
[2016-07-30] MEDS: PREDNISONE 20 MG TABLET PO SCH (10:18)
[2016-07-30] MEDS: OSELTAMIVIR PHOSPHATE 75 MG CAPSULE PO SCH (10:18)
[2016-07-30] MEDS: FAMOTIDINE 20 MG TABLET PO SCH (10:18)
[2016-07-30] MEDS: GUAIFENESIN 600 MG TABLET.SA PO SCH (10:18)
== END 2016-07-30 10:50 | disposition home or self-care (01) | DRG 871 ==
LOC: ER 10:36 → EH 14:07 → UNDOADMIN 14:17 → EH 14:17 → 3S 07-26 → 5 07-27 21:00
PROVIDERS: ADMIT Family Medicine; ATTEND Family Medicine
DX: A41.9 Sepsis, unspecified organism (principal); J09.X1 Influenza due to identified novel influenza A virus with pneumonia; J15.212 Pneumonia due to Methicillin resistant Staphylococcus aureus; R73.9 Hyperglycemia, unspecified; B35.4 Tinea corporis; B35.0 Tinea barbae and tinea capitis; F12.90 Cannabis use, unspecified, uncomplicated; F17.210 Nicotine dependence, cigarettes, uncomplicated; Z22.322 Carrier or suspected carrier of Methicillin resistant Staphylococcus aureus
CPT/HCPCS: 36415; 71020; 80048; 80053; 80202; 80307; 81001; 82550; 82565; 82803; 83036; 83605; 84484; 85025; 86701; 87040; 87070; 87077; 87186; 87205; 87804; 90686; 93005; 93010; 94640; 94799; 96365; 99291; J1650; J1956; J2543; J3370; J3490; J7030; J7060; J7512

== ENCOUNTER → 2016-08-04 | Outpatient (CLI) | payer OTHER ==
[2016-08-04 10:31] LABS: ABSOLUTE BASOPHILS # (AUTO) 0.1 10^3/uL (0.0-0.2); ABSOLUTE EOSINOPHILS # (AUTO) 0.1 10^3/uL (0.0-0.6); ABSOLUTE LYMPHOCYTES (AUTO) 2.5 10^3/uL (0.5-4.7); ABSOLUTE MONOCYTES (AUTO) 0.6 10^3/uL (0.1-1.4); ABSOLUTE NEUT (AUTO) 8.2 10^3/uL (1.7-8.2); BASOPHILS % (AUTO) 0.5 % (0-2); EOSINOPHILS % (AUTO) 1.3 % (0-6); HEMATOCRIT 41.9 % (37.9-51.0); HEMOGLOBIN 13.8 g/dL (13.5-17.0); HGB HCT DIFFERENCE -0.5; LYMPHOCYTES % (AUTO) 21.7 % (13-45); MEAN CORPUSCULAR HEMOGLOBIN 25.8 pg (27.0-33.4); MEAN CORPUSCULAR VOLUME 78 fl (80-97); MONOCYTES % (AUTO) 5.6 % (3-13); RED BLOOD COUNT 5.34 10^6/uL (4.35-5.55); RED CELL DISTRIBUTION WIDTH 14.4 % (11.5-14.0); SEGMENTED NEUTROPHILS % (AUTO) 70.9 % (42-78); WHITE BLOOD COUNT 11.5 10^3/uL (4.0-10.5)
[2016-08-04 10:52] LABS: ALANINE AMINOTRANSFERASE 141 U/L (21-72); ALBUMIN 3.6 g/dL (3.5-5.0); ALKALINE PHOSPHATASE 73 U/L (38-126); ANION GAP 11 (5-19); ASPARTATE AMINO TRANSFERASE 27 U/L (17-59); BILIRUBIN,DIRECT 0.2 mg/dL (0.0-0.4); BILIRUBIN,TOTAL 0.3 mg/dL (0.2-1.3); BLOOD UREA NITROGEN 17 mg/dL (7-20); CALCIUM 9.3 mg/dL (8.4-10.2); CARBON DIOXIDE 26 mmol/L (22-30); CHLORIDE 103 mmol/L (98-107); CREATININE RESULT 0.91 mg/dL (0.52-1.25); GLUCOSE 102 mg/dL (75-110); POTASSIUM 4.6 mmol/L (3.6-5.0); TOTAL PROTEIN 6.6 g/dL (6.3-8.2)
== END ==
LOC: CCC 09:26
DX: J18.9 Pneumonia, unspecified organism (principal); D72.829 Elevated white blood cell count, unspecified
CPT/HCPCS: 36415; 80053; 84443; 85025

== ENCOUNTER 2016-08-13 13:34 | Emergency (ER) | payer OTHER | END 2016-08-13 14:00 | disposition left against medical advice (07) | LOC: ER 13:34 | DX: Z53.21 Procedure and treatment not carried out due to patient leaving prior to being seen by health care provider (principal) ==

== ENCOUNTER 2016-12-07 10:38 | Emergency (ER) | payer SELFPAY ==
[2016-12-07 10:43] VITALS: BP 132/90
[2016-12-07] MEDS ORDERED: HYDROCODONE/ACETAMINOPHEN 5-325 MG TABLET PO ONE (11:16)
--- NOTE | 2016-12-07 11:16 | ER Document Report ---
HPI - HPI Patient complains to provider of: left ear pain Onset: Last week Onset/Duration: Gradual, Worse Quality of pain: Sharp, Stabbing Severity: Severe Pain Level: 5 Context: Patient states he was swimming about 1 week ago and began having discomfort in his left ear. He was seen yesterday at the [facility] and was told that he had a lot of wax in his ears, which was cleaned out at the [facility]. They also told him he had an ear infection but did not prescribe him any antibiotics. States the pain became sharp and stabbing this morning. Associated Symptoms: Earache. denies: Fever Exacerbated by: Denies Relieved by: Denies Similar symptoms previously: Yes Recently seen / treated by doctor: Yes - ROS ROS below otherwise negative: Yes Systems Reviewed and Negative: Yes All other systems reviewed and negative - CONSTITUTIONAL Constitutional: DENIES: Fever - EENT EENT: REPORTS: Ear Pain - left - NEURO Neurology: DENIES: Headache - CARDIOVASCULAR Cardiovascular: DENIES: Chest pain - RESPIRATORY Respiratory: DENIES: Trouble Breathing - GASTROINTESTINAL Gastrointestinal: DENIES: Abdominal Pain - URINARY Urinary: DENIES: Dysuria - MUSCULOSKELETAL Musculoskeletal: DENIES: Extremity pain - DERM Skin Color: Normal Skin Problems: None Past Medical History - General Information source: Patient - Social History Smoking Status: Current Every Day Smoker Cigarette use (# per day): Yes Frequency of alcohol use: Occasional Drug Abuse: Cocaine, Marijuana Lives with: Family Family History: Malignancy Pulmonary Medical History: Reports: Hx Pneumonia Surgical Hx: Negative Vertical Provider Document - CONSTITUTIONAL Agree With Documented VS: Yes Exam Limitations: No Limitations General Appearance: WD/WN, Mild Distress - INFECTION CONTROL TRAVEL OUTSIDE OF THE [place] IN LAST 30 DAYS: No - HEENT HEENT: Atraumatic, Normocephalic Notes: Left canal red and swollen, left TM with purulent appearance. Pain with movement of left auricle. Right TM and canal normal. - RESPIRATORY Respiratory: Breath Sounds Normal, No Respiratory Distress O2 Sat by Pulse Oximetry: 97 - CARDIOVASCULAR Cardiovascular: Regular Rate, Regular Rhythm - MUSCULOSKELETAL/EXTREMETIES Musculoskeletal/Extremeties: MAEW - NEURO Level of Consciousness: Awake, Alert, Appropriate - DERM Integumentary: Warm, Dry Course - Vital Signs Vital signs: Temp Pulse Resp BP Pulse Ox 98.4 F 76 16 132/90 H 97 12/07/16 10:41 12/07/16 10:41 12/07/16 10:41 12/07/16 10:41 12/07/16 10:41 Discharge - Discharge Clinical Impression: Acute otitis media Qualifiers: Otitis media type: suppurative Laterality: left Recurrence: not specified as recurrent Spontaneous tympanic membrane rupture: without spontaneous rupture Qualified Code(s): H66.002 - Acute suppurative otitis media without spontaneous rupture of ear drum, left ear Otitis externa, left Qualifiers: Otitis externa type: unspecified type Chronicity: acute Qualified Code(s): H60.502 - Unspecified acute noninfective otitis externa, left ear Condition: Good Disposition: HOME, SELF-CARE Instructions: Otitis Externa ([facility]), Use of Ear Drops ([facility]), Acetaminophen Additional Instructions: Use eardrops as instructed, twice daily for 7 days Finish all oral antibiotics 3 times a day as needed for pain follow [facility] return As needed Prescriptions: Amoxicillin 1 tab PO TID #30 tab Ibuprofen 800 mg PO TID PRN #20 tablet PRN Reason: Forms: Return to Work
[2016-12-07] MEDS ORDERED: CIPROFLOXACIN HCL/DEXAMETH OTIC DROP 7.5 ML AS ONE (11:17)
== END 2016-12-07 12:00 | disposition home or self-care (01) ==
LOC: ER 10:38
DX: H66.002 Acute suppurative otitis media without spontaneous rupture of ear drum, left ear (principal); H60.502 Unspecified acute noninfective otitis externa, left ear; F17.210 Nicotine dependence, cigarettes, uncomplicated
CPT/HCPCS: 99282; J3490

== ENCOUNTER 2017-07-07 23:03 | Emergency (ER) | payer BC ==
--- NOTE | 2017-07-07 23:17 | ER Document Report ---
ED General - General TRAVEL OUTSIDE OF THE [place] IN LAST 30 DAYS: No <MOR JOHN - Last Filed: 07/08/17 05:14> <KENNY LÓPEZ - Last Filed: 07/08/17 13:13> - General Chief Complaint: Chest pain, Cocaine use Stated Complaint: POSSIBLE OVERDOSE Time Seen by Provider: 07/07/17 23:16 Notes: Patient is a 36-year-old male presents with complaint of cocaine use. Patient says that he has been using cocaine intermittently throughout his life but whenever he has a stressful situation uses it more. He says he has been using it quite a bit for last 4 days. Says he is using it because he is having relationship issues. Patient says he has been very anxious and having some chest tightness. He denies any headache. Denies any focal weakness or numbness. Last cocaine use was approximately an hour ago. No other complaints at this time. He denies any other drug use. (MOR JOHN) - Related Data Allergies/Adverse Reactions: No Known Allergies Allergy (Verified 12/07/16 10:41) Past Medical History - Social History Smoking Status: Unknown if Ever Smoked Frequency of alcohol use: Occasional Drug Abuse: Cocaine Family History: Malignancy Pulmonary Medical History: Reports: Hx Pneumonia Renal/ Medical History: Denies: Hx Peritoneal Dialysis <MOR JOHN - Last Filed: 07/08/17 05:14> Review of Systems <MOR JOHN - Last Filed: 07/08/17 05:14> <KENNY LÓPEZ - Last Filed: 07/08/17 13:13> - Review of Systems Notes: My Normal Review Basic REVIEW OF SYSTEMS: CONSTITUTIONAL : Denies fever, chills, or sweats. Denies recent illness. EENT: Denies eye, ear, throat, or mouth pain or symptoms. Denies nasal or sinus congestion. CARDIOVASCULAR: Some chest tightness. RESPIRATORY: Denies cough, cold, or chest congestion. Denies shortness of breath, difficulty breathing, or wheezing. GASTROINTESTINAL: Denies abdominal pain. Denies nausea, vomiting, or diarrhea. Denies constipation. MUSCULOSKELETAL: Denies neck or back pain or joint pain or swelling. SKIN: Denies rash or skin lesions. NEUROLOGICAL: Denies altered mental status or loss of consciousness. Denies headache. Denies weakness or paralysis or loss of use of either side. Denies problems with gait or speech. Denies sensory or motor loss. ALL OTHER SYSTEMS REVIEWED AND NEGATIVE. (MOR JOHN) Physical Exam <MOR JOHN - Last Filed: 07/08/17 05:14> <KENNY LÓPEZ - Last Filed: 07/08/17 13:13> - Vital signs Vitals: Temp Pulse Resp BP Pulse Ox 98.1 F 90 20 141/80 H 93 07/07/17 23:23 07/07/17 23:23 07/07/17 23:23 07/07/17 23:23 07/07/17 23:23 - Notes Notes: General Appearance: Well nourished, alert, cooperative, no acute distress, no obvious discomfort. Anxious but well-appearing. Vitals: reviewed, See vital signs table. Head: no swelling or tenderness to the head Eyes: PERRL, EOMI, Conjuctiva clear Mouth: No decreasd moisture Throat: No tonsillar inflammation, No airway obstruction, No lymphadenopathy Neck: Supple, no neck tenderness, No thyromegaly Lungs: No wheezing, No rales, No rhonci, No accessory muscle use, good air exchange bilaterally. Heart: Normal rate, Regular rythm, No murmur, no rub Abdomen: Normal BS, soft, No rigidity, No abdominal tenderness, No guarding, no rebound, no abdominal masses, no organomegaly Extremities: strength 5/5 in all extremities, good pulses in all extremities, no swelling or tenderness in the extremities, no edema. Skin: warm, dry, appropriate color, no rash Neuro: speech clear, oriented x 3, normal affect, responds appropriately to questions. Cranial nerves II through XII are intact. Normal gait. Patient is good strength in all 4 extremities. Distal sensation intact. (MOR JOHN) Course - Laboratory Result Diagrams: 07/07/17 23:36 07/07/17 23:36 <MOR JOHN - Last Filed: 07/08/17 05:14> - Laboratory Result Diagrams: 07/07/17 23:36 07/07/17 23:36 <KENNY LÓPEZ - Last Filed: 07/08/17 13:13> - Re-evaluation Re-evalutation: 07/08/17 01:11 Patient is currently resting comfortably and looks well. 07/08/17 05:14 His vital signs are stable. I let him sleep tonight. I did speak with him just now again. I talked to him about his triggers for cocaine use. He says he has a lot of anxiety and depression especially with his recent problems with his marriage. He said this leads to his cocaine use. He is not suicidal homicidal but does request to speak with psychiatry as he feels if he can control his depression anxiety he will most likely not rely on cocaine to treat his psychiatric symptoms. I have put in a consult for psychiatry. Patient is medically stable for psychiatric evaluation. Dictation of this chart was performed using voice recognition software; therefore, there may be some unintended grammatical errors. (MOR JOHN) - Vital Signs Vital signs: Temp Pulse Resp BP Pulse Ox 98.1 F 90 20 107/61 96 07/07/17 23:23 07/07/17 23:23 07/08/17 12:22 07/08/17 12:23 07/08/17 12:22 - Laboratory Laboratory results interpreted by me: 07/07/17 07/07/17 07/07/17 23:36 23:36 23:36 RBC 5.92 H MCV 79 L MCH 26.3 L RDW 15.1 H AST 76 H Urine Protein 100 H Urine Ketones 20 H Urine Urobilinogen 4.0 H Ur Leukocyte Esterase TRACE H Acetaminophen < 10 L - EKG Interpretation by Me Additional EKG results interpreted by me: 07/07/17 23:17 EKG is reviewed and interpreted by me. EKG shows normal sinus rhythm with a rate of [address] segment elevation or depression. No ischemic T-wave inversions. [place] interval, QRS duration, QTc intervals are within normal range. Old EKG for comparison is from July 25, 2016. (MOR JOHN) Discharge <MOR JOHN - Last Filed: 07/08/17 05:14> <KENNY LÓPEZ - Last Filed: 07/08/17 13:13> - Discharge Clinical Impression: Cocaine use, Anxiety, Stimulant intoxication with perceptual disturbance Depression Qualifiers: Depression Type: unspecified Qualified Code(s): F32.9 - Major depressive disorder, single episode, unspecified Condition: Poor
[2017-07-07] MEDS ORDERED: LORAZEPAM INJ 2 MG/1 ML VIAL IV ONE (23:22)
[2017-07-08 00:01] LABS: ABSOLUTE BASOPHILS # (AUTO) 0.1 10^3/uL (0.0-0.2); ABSOLUTE EOSINOPHILS # (AUTO) 0.5 10^3/uL (0.0-0.6); ABSOLUTE LYMPHOCYTES (AUTO) 2.3 10^3/uL (0.5-4.7); ABSOLUTE NEUT (AUTO) 4.9 10^3/uL (1.7-8.2); AMORPHOUS SEDIMENT,URINE TRACE /HPF; APPEARANCE,URINE CLOUDY; BASOPHILS % (AUTO) 0.7 % (0-2); BILIRUBIN,URINE NEGATIVE (NEGATIVE); COLOR,URINE YELLOW; EOSINOPHILS % (AUTO) 5.6 % (0-6); GLUCOSE, URINE NEGATIVE (NEGATIVE); HEMATOCRIT 46.9 % (37.9-51.0); HEMOGLOBIN 15.6 g/dL (13.5-17.0); KETONES,URINE 20 mg/dL (NEGATIVE); LEUKOCYTE ESTERASE,URINE TRACE (NEGATIVE); MEAN CORPUSCULAR HEMOGLOBIN 26.3 pg (27.0-33.4); MEAN CORPUSCULAR HGB CONC 33.2 g/dL (32.0-36.0); MEAN CORPUSCULAR VOLUME 79 fl (80-97); MONOCYTES % (AUTO) 11.5 % (3-13); NITRITE,URINE NEGATIVE (NEGATIVE); PLATELET COUNT 314 10^3/uL (150-450); PROTEIN,URINE 100 mg/dL (NEGATIVE); RED BLOOD COUNT 5.92 10^6/uL (4.35-5.55); RED CELL DISTRIBUTION WIDTH 15.1 % (11.5-14.0); SEGMENTED NEUTROPHILS % (AUTO) 56.2 % (42-78); TOTAL CELLS COUNTED % (AUTO) 100 %; URINE SPECIFIC GRAVITY 1.035; WHITE BLOOD COUNT 8.7 10^3/uL (4.0-10.5)
[2017-07-08 00:06] LABS: ALANINE AMINOTRANSFERASE 60 U/L (21-72); ALBUMIN 4.3 g/dL (3.5-5.0); ALKALINE PHOSPHATASE 79 U/L (38-126); ANION GAP 15 (5-19); ASPARTATE AMINO TRANSFERASE 76 U/L (17-59); BILIRUBIN,DIRECT 0.2 mg/dL (0.0-0.4); BILIRUBIN,TOTAL 0.3 mg/dL (0.2-1.3); BLOOD UREA NITROGEN 13 mg/dL (7-20); CALCIUM 9.3 mg/dL (8.4-10.2); CARBON DIOXIDE 24 mmol/L (22-30); CHLORIDE 102 mmol/L (98-107); GLUCOSE 83 mg/dL (75-110); POTASSIUM 3.8 mmol/L (3.6-5.0); SALICYLATE 14.5 mg/dL (2.0-20.0); SODIUM 141.3 mmol/L (137-145)
[2017-07-08 00:07] LABS: ACETAMINOPHEN < 10 ug/mL (10-30); ALCOHOL < 10 mg/dL (NONE DETECTED)
[2017-07-08 00:13] LABS: URINE AMPHETAMINES SCREEN NEGATIVE; URINE BARBITURATES SCREEN NEGATIVE; URINE BENZODIAZEPINES SCREEN NEGATIVE; URINE COCAINE SCREEN UNCONFIRMED POSITIVE; URINE MARIJUANA (THC) SCREEN UNCONFIRMED POSITIVE; URINE METHADONE SCREEN NEGATIVE; URINE PHENCYCLIDINE SCREEN NEGATIVE
--- NOTE | 2017-07-08 07:49 | EKG REPORT ---
SEVERITY:- NORMAL ECG - SINUS RHYTHM : Confirmed by: Kenan Ansari MD 08-Jul-2017 07:48:41
--- NOTE | 2017-07-08 10:17 | ER Document Report ---
Doctor's Note Notes: 07/08/17 10:16 Rounds: Patient being evaluated for cocaine abuse. Also suffers from depression and anxiety. Vital signs are all essentially normal. Lab studies were all normal except for being positive for marijuana and cocaine on the patient's drug screen. Patient appears to be medically stable for transfer or discharge. Josefina Vera MD
--- NOTE | 2017-07-08 11:08 | PSYCHOLOGICAL NOTE ---
Psych Note - Psych Note Psych Note: Time of initial consult : 10:48 Final Disposition 11:05 am Contact permissions: none Patient is a 36 year old male. Patient denies SI/HI and describes himself as a "loving german". Patient reports he has been using substances for 10 years. Patient reports he primarily smokes marijuana and uses cocaine. Patient reports he smokes 2 joints per day. Patient reports he uses cocaine around 2- 3 times per month but each usage is "days at a time and can't stop". Patient reports prior to coming to the ED he was using cocaine consistently for 4 days in a row without sleeping. Patient reports he was in another "psychological realm". Patient reports he felt that he was delusional because he was seeing things that were not there so he wanted to take himself to the ED so he can finally get help. Patient reports he has 5 daughters at home and has a at home. Patient reports his children and family do not know of his usage because he has been able to function such as going to work and paying his car and house bills. Patient reports he is in the process of wanting to separate from his because he has too many responsibilities. Patient reported there is "turmoil within the family". Patient stated " I dont want to lose my kids". Patient reports that he feels embarrassed because he is a prideful person and does not like getting help for himself. Patient reports that he has his mother and niece that moved down and are supportive of him but are not aware of his substance use. Patient requested mental health and ED to not share his substance use information to his family, and especially not his . Patient reports he has never received a mental health diagnosis before. Patient reports he is normally a "happy go getter" but after using days in a row he experiences lows and then his reality hits him. Patient reports he feels like a mental wreck. Patient stated " getting high doesn't help your problems. Patient reports when he using everyday he goes crazy. Clinician observed patient's behavior is congruent with being under the influence. Clinician observed patient was incoherent at times during the assessment, would fall asleep and quickly wake up and continue to answer assessment questions. Clinician provided psycho-education on substance use and correlation to mood regulation. Clinician provided patient with resources for substance use treatment. Clinician made [employer] report regarding substance use around minor children under the care of patient. Medication Recommendation: medication recommendation made by psychiatric provider Dr. Curtis MD. includes: None Diagnosis: 292.89 ( F15.229) Stimulant Intoxication, Cocaine with perceptual Disturbances , with use disorder, severe Impression/Plan: Patient is psychiatrically cleared for discharge by mental health. Patient provided resources on mental health. Recommendation for patient to contact [facility] for linkage to substance use treatment once patient is sober. Consulted with Dr. Andrews regarding the management and care of patient.
[2017-07-08 12:54] VITALS: BP 107/61
== END 2017-07-08 13:20 | disposition home or self-care (01) ==
LOC: ER 23:03
DX: Z53.21 Procedure and treatment not carried out due to patient leaving prior to being seen by health care provider (principal); T65.91XA Toxic effect of unspecified substance, accidental (unintentional), initial encounter
CPT/HCPCS: 93005; 99285; 96374; 36415; 80307 ×4; 85025; 80053; 81001; 84484; 93010; J2060

== ENCOUNTER 2018-12-10 12:06 | Emergency (ER) | payer SELFPAY ==
[2018-12-10] MEDS ORDERED: DIPH/PERTUSS(ACELL)/TETANUS VAC/PF 0.5 ML SYR (>=10YO) IM ONE (13:22)
[2018-12-10] MEDS ORDERED: HYDROCODONE/ACETAMINOPHEN 5-325 MG TABLET PO ONE (13:22)
--- NOTE | 2018-12-10 13:45 | ER Document Report ---
HPI - HPI Patient complains to provider of: bilateral puncture wounds foot Time Seen by Provider: 12/10/18 13:17 Pain Level: 5 Context: 38-year-old male presents emergency department with chief complaint of bilateral puncture wounds on the plantar surfaces of both his feet. He was at a worksite yesterday and stepped on a nail with his right foot that went through the sole of his shoe, he quickly extracted his foot and the nail came out clean. He states that was a clean nail. Later he went to another job site and with his left foot stepped on a nail that he saw it was jareth that happened in the same manner. Patient's tetanus shot is not up-to-date. Patient is complaining of pain but no redness around the site, no purulent discharge, no fevers, no other concerning symptoms at this time. Past Medical History - Social History Smoking Status: Unknown if Ever Smoked Family History: None, Malignancy Pulmonary Medical History: Reports: Hx Pneumonia Renal/ Medical History: Denies: Hx Peritoneal Dialysis Vertical Provider Document - CONSTITUTIONAL Notes: PHYSICAL EXAMINATION: Reviewed vital signs and charting by RN GENERAL: Alert, interacts well. No acute distress. HEAD: Normocephalic, atraumatic. EYES: Pupils equal and round. Extraocular movements intact. ENT: Oral mucosa moist, tongue midline. NECK: Full range of motion. Trachea midline. EXTREMITIES: Moves all 4 extremities spontaneously. No edema, No cyanosis. Puncture wound right foot the pad just proximal to the third toe and a small puncture wound on the left foot pad just proximal to the second toe, wounds do not look infected, no bleeding or purulent discharge. PSYCH: Normal affect, normal mood. SKIN: Warm, dry, normal turgor. No rashes or lesions noted. - INFECTION CONTROL TRAVEL OUTSIDE OF THE [place] IN LAST 30 DAYS: No Course - Re-evaluation Re-evalutation: 12/10/18 13:44 Patient symptoms consistent with bilateral puncture wounds that appear uncomplicated. After reviewing the literature and reading up-to-date I do not feel it is necessary to anesthetize and core out the wound and explore. Patient states that it was a clean in and out. Pending x-ray, I am going to place him on 5 days of levofloxacin. 12/10/18 14:20 X-ray is negative for any retained foreign bodies. The wound is very minimal and I have low concern for any underlying significant infection. I am going to give patient his first dose of levofloxacin here in the emergency department with his prescription. He is stable for discharge. - Vital Signs Vital signs: Temp Pulse Resp BP Pulse Ox 97.3 F 64 20 112/74 96 12/10/18 12:08 12/10/18 12:08 12/10/18 12:08 12/10/18 12:08 12/10/18 12:08 Discharge - Discharge Clinical Impression: Puncture wound Condition: Good Disposition: HOME, SELF-CARE Additional Instructions: You were seen in the emergency department today for puncture wounds on both of your feet. X-ray did not show any retained foreign bodies. This is all very reassuring and I have low concern for infection at this time. Because of the nature of the wound and the fact that it went through his shoe it does put you at higher risk for infectious complications so we are putting you on an antibiotic for 5 days. This antibiotic can cause some GI upset and you should refrain from any sports while you are on it as it does slightly increase the risk of Achilles heel injury. Also, you need to be very vigilant and watch for signs of infection. If your foot starts to get red and swollen, you develop fever, Prescriptions: RX: Levofloxacin [Levaquin 500 mg Tablet] 500 mg PO DAILY #5 tablet
[2018-12-10] MEDS ORDERED: LEVOFLOXACIN 500 MG TABLET PO ONE (14:09)
--- NOTE | 2018-12-10 14:09 | RADIOLOGY REPORT (SQ) ---
EXAM DESCRIPTION: FOOT BILATERAL 2 VIEWS COMPLETED DATE/TIME: 12/10/2018 1:53 pm REASON FOR STUDY: bilateral puncture wounds COMPARISON: None. NUMBER OF VIEWS: Three views. TECHNIQUE: AP, lateral and oblique radiographic images acquired of the right and left foot. LIMITATIONS: None. FINDINGS: MINERALIZATION: Normal. BONES: No acute fracture or dislocation. No worrisome bone lesions. JOINTS: No effusions. SOFT TISSUES: No soft tissue swelling. No foreign body. OTHER: No other significant finding. IMPRESSION: NEGATIVE STUDY OF THE RIGHT AND LEFT FEET. NO RADIOGRAPHIC EVIDENCE OF ACUTE INJURY. TECHNICAL DOCUMENTATION: JOB ID: [id number] [employer]- All Rights Reserved Reading location - IP/workstation name: [email or web address]
[2018-12-10] MEDS ORDERED: HYDROCODONE/ACETAMINOPHEN 5-325 MG (6 TAB/ER DISP) PO PRN (14:46)
[2018-12-10 14:48] VITALS: BP 117/74
== END 2018-12-10 14:58 | disposition home or self-care (01) ==
LOC: ER 12:06
DX: S91.332A Puncture wound without foreign body, left foot, initial encounter (principal); S91.331A Puncture wound without foreign body, right foot, initial encounter; W45.0XXA Nail entering through skin, initial encounter; Y99.0 Civilian activity done for income or pay
CPT/HCPCS: 90471; 90715; 99283

== ENCOUNTER 2018-12-24 06:09 | Emergency (ER) | payer SELFPAY ==
[2018-12-24 06:16] VITALS: BP 137/87
[2018-12-24] MEDS ORDERED: OXYCODONE-ACETAMINOPHEN 5-325 MG TABLET PO ONE (08:07)
[2018-12-24] MEDS ORDERED: LIDOCAINE 1% INJ-PF (10 MG/ML) 30 ML SDV INJ ONE (08:07)
[2018-12-24] MEDS ORDERED: CEPHALEXIN 500 MG CAPSULE PO ONE (08:10)
[2018-12-24] MEDS ORDERED: GENTAMICIN SULFATE INJ 80 MG/2 ML VIAL IM ONE (08:10)
--- NOTE | 2018-12-24 08:11 | ER Document Report ---
ED Extremity Problem, Lower - General Chief Complaint: Foot Pain Stated Complaint: LEFT FOOT INJURY Time Seen by Provider: 12/24/18 07:57 Mode of Arrival: Ambulatory Information source: Patient, [facility] Records Notes: This 38-year-old male patient comes emergency room complaining of pain to the left foot. He was seen here on 12/10/2018 after stepping on a nail. He received a tetanus update, and a prescription for Levaquin. He did not fill the antibiotic prescription due to cost. He has continued to stand on his feet working every day. He states that the pain in the plantar surface of the left foot has been getting much worse over the last few days. TRAVEL OUTSIDE OF THE [place] 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: Family Family History: None, Malignancy Patient has suicidal ideation: No Patient has homicidal ideation: No Pulmonary Medical History: Reports: Hx Pneumonia Surgical Hx: Negative Review of Systems - Review of Systems Constitutional: No symptoms reported EENT: No symptoms reported Cardiovascular: No symptoms reported Respiratory: No symptoms reported Gastrointestinal: No symptoms reported Musculoskeletal: See HPI Skin: No symptoms reported Hematologic/Lymphatic: No symptoms reported Neurological/Psychological: No symptoms reported Physical Exam - Vital signs Vitals: Temp Pulse Resp BP Pulse Ox 97.7 F 76 15 137/87 H 97 12/24/18 06:13 12/24/18 06:13 12/24/18 06:13 12/24/18 06:13 12/24/18 06:13 Interpretation: Normal - General General appearance: Appears well, Alert In distress: None - HEENT Head: Normocephalic, Atraumatic Eyes: Normal Pupils: PERRL - Respiratory Respiratory status: No respiratory distress Breath sounds: Normal - Cardiovascular Rhythm: Regular - Abdominal Inspection: Normal - Back Back: Normal - Extremities General upper extremity: Normal inspection General lower extremity: Other - Left plantar foot has a puncture wound over the fourth metatarsal head. There is 2 mm suquamish of white tissue around the puncture area, the surrounding tissue is swollen, a little erythemic, exquisitely tender. There is no drainage from the wound. - Neurological Neuro grossly intact: Yes - Psychological Associated symptoms: Normal affect, Normal mood Course - Re-evaluation Re-evalutation: 12/24/18 09:22 PROCEDURE: The left plantar foot skin was prepped with Shur-Clens. The puncture wound region was infiltrated with 1% lidocaine using a total of 1.5 mls. The wound was cored with a #11 blade, releasing pus. The wound was probed with mosquito clamp. The wound was irrigated with 5 mL's normal saline. The wound was packed with quarter-inch gauze. Sterile dressing was applied. A wound culture of the pus was obtained. - Vital Signs Vital signs: Temp Pulse Resp BP Pulse Ox 97.7 F 76 15 137/87 H 97 12/24/18 06:13 12/24/18 06:13 12/24/18 06:13 12/24/18 06:13 12/24/18 06:13 - Diagnostic Test Radiology reviewed: Image reviewed, Reports reviewed - Left foot x-ray does not show acute bony abnormality. Discharge - Discharge Clinical Impression: Abscess of foot Puncture wound of foot Qualifiers: Encounter type: initial encounter Laterality: left Qualified Code(s): S91.332A - Puncture wound without foreign body, left foot, initial encounter Condition: Stable Disposition: HOME, SELF-CARE Additional Instructions: The nail puncture wound to your left foot had become infected and had pus developing. This area was cored open and then packed with gauze. Elevate your foot all the time for the next few days. Take the medications as prescribed. Take ibuprofen 800 mg every 8 hours for the next few days. Return to the emergency room tomorrow morning for recheck of your foot. I will probably remove the gauze packing at that time. Prescriptions: Cephalexin Monohydrate [Keflex 500 mg Capsule] 500 mg PO QID #28 capsule Oxycodone HCl/Acetaminophen [Percocet 5-325 mg Tablet] 1 tab PO ASDIR PRN #12 tablet PRN Reason: Forms: Return to Work
--- NOTE | 2018-12-24 09:06 | RADIOLOGY REPORT (SQ) ---
EXAM DESCRIPTION: FOOT LEFT COMPLETE COMPLETED DATE/TIME: 12/24/2018 8:43 am REASON FOR STUDY: Infected nail puncture over fourth metatarsal head COMPARISON: None. NUMBER OF VIEWS: Three views. TECHNIQUE: AP, lateral and oblique radiographic images acquired of the left foot. LIMITATIONS: None. FINDINGS: MINERALIZATION: Normal. BONES: No acute fracture or dislocation. No worrisome bone lesions. JOINTS: No effusions. SOFT TISSUES: No soft tissue swelling. No radiopaque foreign body. OTHER: No other significant finding. IMPRESSION: No acute bony abnormality. No radiopaque foreign body. TECHNICAL DOCUMENTATION: JOB ID: [id number] [employer]- All Rights Reserved Reading location - IP/workstation name: [email or web address]
== END 2018-12-24 09:59 | disposition home or self-care (01) ==
LOC: ER 06:09
DX: L02.612 Cutaneous abscess of left foot (principal); S91.332A Puncture wound without foreign body, left foot, initial encounter; F17.210 Nicotine dependence, cigarettes, uncomplicated; W45.0XXA Nail entering through skin, initial encounter
CPT/HCPCS: 87070; 87205; 73630; 10060; A6266; J1580; J3490; 87077; 96372; 99283

== ENCOUNTER 2019-01-12 11:30 | Emergency (ER) | payer SELFPAY ==
[2019-01-12] MEDS ORDERED: HYDROCODONE/ACETAMINOPHEN 5-325 MG TABLET PO ONE (12:58)
--- NOTE | 2019-01-12 12:59 | ER Document Report ---
HPI - HPI Patient complains to provider of: ankle injury Time Seen by Provider: 01/12/19 12:45 Onset: Yesterday Onset/Duration: Persistent Quality of pain: Achy Pain Level: 5 Context: Patient was playing basketball yesterday and another player stepped on his foot and ankle. Patient complains of right lateral ankle pain that radiates into the foot. Exacerbated by: Standing, Movement, Walking Relieved by: Denies Similar symptoms previously: No Recently seen / treated by doctor: No - ROS ROS below otherwise negative: Yes Systems Reviewed and Negative: Yes All other systems reviewed and negative - CONSTITUTIONAL Constitutional: DENIES: Fever - NEURO Neurology: DENIES: Weakness - GASTROINTESTINAL Gastrointestinal: DENIES: Nausea, Patient vomiting - MUSCULOSKELETAL Musculoskeletal: REPORTS: Extremity pain, Swelling - DERM Skin Color: Normal Skin Problems: None Past Medical History - General Information source: Patient - Social History Smoking Status: Current Some Day Smoker Smoking Education Provided: Yes Frequency of alcohol use: Occasional Drug Abuse: Marijuana Occupation: food checkers and cashiers supervisor Family History: None, Malignancy Pulmonary Medical History: Reports: Hx Pneumonia Renal/ Medical History: Denies: Hx Peritoneal Dialysis Surgical Hx: Negative Vertical Provider Document - CONSTITUTIONAL Agree With Documented VS: Yes Exam Limitations: No Limitations General Appearance: WD/WN, No Apparent Distress - INFECTION CONTROL TRAVEL OUTSIDE OF THE [place] IN LAST 30 DAYS: No - HEENT HEENT: Atraumatic, Normocephalic - NECK Neck: Normal Inspection - RESPIRATORY Respiratory: No Respiratory Distress - CARDIOVASCULAR Pulses: Normal: Dorsalis pedis - MUSCULOSKELETAL/EXTREMETIES Musculoskeletal/Extremeties: MAEW, Tender - Right ankle tenderness over lateral malleolar area, foot tenderness over cuboid as well as fifth metatarsal - NEURO Level of Consciousness: Awake, Alert, Appropriate Motor/Sensory: No Motor Deficit - DERM Integumentary: Warm, Dry Course - Vital Signs Vital signs: Temp Pulse Resp BP Pulse Ox 99.0 F 66 18 116/74 97 01/12/19 11:40 01/12/19 11:40 01/12/19 11:40 01/12/19 11:40 01/12/19 11:40 - Diagnostic Test Radiology reviewed: Reports reviewed Procedures - Immobilization Right Ankle Pre-Proc Neuro Vasc Exam: Normal Immobilizer type: Ankle stirrup Performed by: PCT Post-Proc Neuro Vasc Exam: Normal Alignment checked and good: Yes Discharge - Discharge Clinical Impression: Foot pain, right Ankle sprain Qualifiers: Encounter type: initial encounter Involved ligament of ankle: unspecified ligament Laterality: right Qualified Code(s): S93.401A - Sprain of unspecified ligament of right ankle, initial encounter Condition: Stable Disposition: HOME, SELF-CARE Instructions: Ankle Stirrup Splint ([facility]), Use of Crutches ([facility]), Ice & Elevation ([facility]), Sprained Ankle ([facility]) Additional Instructions: Return immediately for any new or worsening symptoms Followup with your primary care provider, call tomorrow to make a followup appointment Weightbearing as tolerated Follow-up with orthopedics for any persistent pain or problems Prescriptions: Naproxen [Naprosyn 250 Nmg Tablet] 1 tab PO BID #14 tablet Forms: Smoking Cessation Education, Return to Work Referrals: [facility] [Provider Group] - Follow up as needed
--- NOTE | 2019-01-12 13:36 | RADIOLOGY REPORT (SQ) ---
EXAM DESCRIPTION: ANKLE RIGHT COMPLETE COMPLETED DATE/TIME: 01/12/2019 1:23 pm REASON FOR STUDY: basketball injury, Lat mal pain, lateral foot pain COMPARISON: None. NUMBER OF VIEWS: Three views. TECHNIQUE: AP, lateral, and oblique radiographic images acquired of the right ankle. LIMITATIONS: None. FINDINGS: MINERALIZATION: Normal. BONES: No acute fracture or dislocation. Incidental accessory ossicle at the tip of the lateral mall eolus. No worrisome bone lesions. JOINTS: No effusions. SOFT TISSUES: Mild lateral soft tissue swelling. No foreign body. OTHER: No other significant finding. IMPRESSION: MILD LATERAL SOFT TISSUE SWELLING. NO ACUTE BONY FINDINGS. TECHNICAL DOCUMENTATION: JOB ID: [id number] [employer]- All Rights Reserved Reading location - IP/workstation name: [email or web address]
--- NOTE | 2019-01-12 13:37 | RADIOLOGY REPORT (SQ) ---
EXAM DESCRIPTION: FOOT RIGHT COMPLETE COMPLETED DATE/TIME: 01/12/2019 1:23 pm REASON FOR STUDY: basketball injury, Lat mal pain, lateral foot pain COMPARISON: None. NUMBER OF VIEWS: Three views. TECHNIQUE: AP, lateral and oblique radiographic images acquired of the right foot. LIMITATIONS: None. FINDINGS: MINERALIZATION: Normal. BONES: No acute fracture or dislocation. No worrisome bone lesions. JOINTS: No effusions. SOFT TISSUES: No soft tissue swelling. No foreign body. OTHER: No other significant finding. IMPRESSION: NEGATIVE STUDY OF THE RIGHT FOOT. NO RADIOGRAPHIC EVIDENCE OF ACUTE INJURY. TECHNICAL DOCUMENTATION: JOB ID: [id number] [employer]- All Rights Reserved Reading location - IP/workstation name: [email or web address]
[2019-01-12 14:01] VITALS: BP 126/81
== END 2019-01-12 14:02 | disposition home or self-care (01) ==
LOC: ER 11:30
PROC: 2W3QX1Z Immobilization of Right Lower Leg using Splint (ICD-10-PCS; principal; 2019-01-12)
DX: S93.401A Sprain of unspecified ligament of right ankle, initial encounter (principal); M79.671 Pain in right foot; M25.571 Pain in right ankle and joints of right foot; M79.89 Other specified soft tissue disorders; W51.XXXA Accidental striking against or bumped into by another person, initial encounter; Y93.67 Activity, basketball; F17.200 Nicotine dependence, unspecified, uncomplicated
CPT/HCPCS: 99283; 73610; 73630; 29515; L1902

== ENCOUNTER 2019-04-06 00:21 | Emergency (ER) | payer SELFPAY ==
--- NOTE | 2019-04-06 02:19 | ER Document Report ---
ED General - General Chief Complaint: Chest Pain Stated Complaint: CHEST PAIN Time Seen by Provider: 04/06/19 02:14 TRAVEL OUTSIDE OF THE [place] IN LAST 30 DAYS: No - HPI Notes: This is a 38-year-old male who presents complaining of intermittent chest pain for the past 2 days. Patient admits that he has been doing some heavy drinking recently and partying. Patient states he is also had a recent bout of nausea, vomiting and diarrhea during this past week and has just felt unwell in general. Patient denies shortness of breath. Patient states he wants to "just get checked out" to "make sure everything looks all right." - Related Data Allergies/Adverse Reactions: No Known Allergies Allergy (Verified 01/12/19 11:31) Past Medical History - General Information source: Patient - Social History Smoking Status: Current Every Day Smoker Frequency of alcohol use: binge drink Drug Abuse: Marijuana Family History: Malignancy Patient has suicidal ideation: No Patient has homicidal ideation: No Pulmonary Medical History: Reports: Hx Pneumonia Renal/ Medical History: Denies: Hx Peritoneal Dialysis Review of Systems - Review of Systems Constitutional: No symptoms reported EENT: No symptoms reported Cardiovascular: Chest pain Respiratory: No symptoms reported Gastrointestinal: No symptoms reported Genitourinary: No symptoms reported Male Genitourinary: No symptoms reported Musculoskeletal: No symptoms reported Skin: No symptoms reported Hematologic/Lymphatic: No symptoms reported Neurological/Psychological: No symptoms reported -: Yes All other systems reviewed and negative Physical Exam - Vital signs Vitals: Temp Pulse Resp BP Pulse Ox 97.7 F 73 20 140/69 H 96 04/06/19 00:38 04/06/19 00:38 04/06/19 00:38 04/06/19 00:38 04/06/19 00:38 - Notes Notes: PHYSICAL EXAMINATION: GENERAL: Well-appearing, well-nourished and in no acute distress. HEAD: Atraumatic, normocephalic. EYES: Pupils equal round and reactive to light, extraocular movements intact, sclera anicteric, conjunctiva are normal. ENT: nares patent, oropharynx clear without exudates. Moist mucous membranes. NECK: Normal range of motion, supple without lymphadenopathy LUNGS: Breath sounds clear to auscultation bilaterally and equal. No wheezes rales or rhonchi. HEART: Regular rate and rhythm without murmurs ABDOMEN: Soft, nontender, normoactive bowel sounds. No guarding, no rebound. No masses appreciated. EXTREMITIES: Normal range of motion, no pitting or edema. No cyanosis. NEUROLOGICAL: No focal neurological deficits. Moves all extremities spontaneously and on command. PSYCH: Normal mood, normal affect. SKIN: Warm, Dry, normal turgor. Patient does have several psoriatic plaques present on his bilateral lower extremities. Course - Re-evaluation Re-evalutation: 04/06/19 04:45 Results of ED medical screening exam discussed with patient. Patient is requesting a cream to help with his psoriasis symptoms. Emergency signs and symptoms, reasons to return to the emergency department discussed with patient who expressed understanding. - Vital Signs Vital signs: Temp Pulse Resp BP Pulse Ox 97.7 F 73 20 140/69 H 96 04/06/19 00:38 04/06/19 00:38 04/06/19 00:38 04/06/19 00:38 04/06/19 00:38 - Laboratory Result Diagrams: 04/06/19 02:01 04/06/19 02:01 Laboratory results interpreted by me: 04/06/19 04/06/19 02:01 02:01 RBC 5.61 H MCH 26.9 L RDW 14.6 H Eos % (Auto) 14.4 H Absolute Eos (auto) 1.0 H Seg Neutrophils % 35.8 L Chloride 108 H BUN 22 H Creatinine 1.26 H - Diagnostic Test Radiology reviewed: Reports reviewed - EKG Interpretation by Me Additional EKG results interpreted by me: 04/06/19 02:18 EKG performed on 04/06/2019 at 00 28 hours was interpreted by this MD. Findings: Normal sinus rhythm, rate 75, normal axis, P waves preceding QRS com plexes, nonspecific ST segments. Impression normal sinus rhythm with nonspecific ST segments. Discharge - Discharge Clinical Impression: Chest pain, Psoriasis Condition: Good Disposition: HOME, SELF-CARE Additional Instructions: Return to the Emergency Department without delay if any worse. HOME CARE INSTRUCTIONS & INFORMATION: Thank you for choosing us for your medical needs. We hope you're satisfied with the care you received. After you leave, you must properly care for your problem and, at the same time, observe its progress. Any condition can change. Some illnesses can change rapidly over hours or days. If your condition worsens, return to the Emergency Department or see your physician promptly. ABOUT YOUR X-RAYS AND EKG'S: If you had an EKG or X-rays taken, they have been read by the Emergency Physician. The X-rays and EKG's will also be read by a Radiologist or Segmental Paver Installer within 24 hours. If discrepancies are noted, you will be notified by telephone. Please be certain the ED has a correct telephone number & address where you can be reached. Also, realize that some fractures or abnormalities do not show up on initial X-rays. If your symptoms continue, see your physician. ABOUT YOUR LABORATORY TEST: If you had laboratory tests, the results have been reviewed by the Emergency Physician. Some test results (for example cultures) may not be available for several days. You will be contacted if any test result shows you need additional treatment. Please be certain the ED has a correct telephone number and address where you can be reached. ABOUT YOUR MEDICATIONS: You will receive instructions on how to take your medicine on the prescription label you receive. Additional information may be provided by the Pharmacy. If you have questions afterwards, call the ED for clarification or further instructions. Some prescribed medications may cause drowsiness. Do not perform tasks such as driving a car or operating machinery without consulting your Pharmacist. If you feel you need a refill of pain medi cation, your condition will need re-evaluation. Please do not call for a refill of any medication. ABOUT YOUR SIGNATURE: Signature of this document acknowledges to followin. Understanding that you received emergency treatment and that you may be released before al medical problems are known or treated. Please be certain the ED has a correct phone number & address where you can be reached. 2. Acknowledgement that you will arrange for follow-up care as recommended. 3. Authorization for the Emergency Physician to provide information to your follow-up Physician in order to maximize your care. AT ANY TIME, IF YOUR SYMPTOMS CHANGE SIGNIFICANTLY OR WORSEN OR YOU DEVELOP NEW SYMPTOMS, RETURN TO THE EMERGENCY DEPARTMENT IMMEDIATELY FOR RE-EVALUATION. OUR GOAL IS TO PROVIDE EXCELLENT MEDICAL CARE! WE HOPE THAT WE HAVE MET YOUR EXPECTATIONS DURING YOUR EMERGENCY DEPARTMENT VISIT AND THAT YOU FEEL YOU HAVE RECEIVED EXCELLENT CARE! Prescriptions: Triamcinolone Acetonide 15 gm TP TID 10 Days #1 oint..gm.
[2019-04-06 02:32] LABS: ABSOLUTE BASOPHILS # (AUTO) 0.1 10^3/uL (0.0-0.2); ABSOLUTE LYMPHOCYTES (AUTO) 2.6 10^3/uL (0.5-4.7); ABSOLUTE MONOCYTES (AUTO) 0.8 10^3/uL (0.1-1.4); ABSOLUTE NEUT (AUTO) 2.5 10^3/uL (1.7-8.2); BASOPHILS % (AUTO) 0.9 % (0-2); EOSINOPHILS % (AUTO) 14.4 % (0-6); HEMATOCRIT 45.6 % (37.9-51.0); HEMOGLOBIN 15.1 g/dL (13.5-17.0); MEAN CORPUSCULAR HEMOGLOBIN 26.9 pg (27.0-33.4); MEAN CORPUSCULAR VOLUME 81 fl (80-97); MONOCYTES % (AUTO) 10.9 % (3-13); PLATELET COUNT 295 10^3/uL (150-450); RED BLOOD COUNT 5.61 10^6/uL (4.35-5.55); RED CELL DISTRIBUTION WIDTH 14.6 % (11.5-14.0); SEGMENTED NEUTROPHILS % (AUTO) 35.8 % (42-78); TOTAL CELLS COUNTED % (AUTO) 100 %; WHITE BLOOD COUNT 6.9 10^3/uL (4.0-10.5)
[2019-04-06 02:48] LABS: ALBUMIN 4.2 g/dL (3.5-5.0); ALKALINE PHOSPHATASE 65 U/L (38-126); ANION GAP 11 (5-19); ASPARTATE AMINO TRANSFERASE 39 U/L (17-59); BILIRUBIN,DIRECT 0.1 mg/dL (0.0-0.4); BILIRUBIN,TOTAL 0.3 mg/dL (0.2-1.3); BLOOD UREA NITROGEN 22 mg/dL (7-20); CALCIUM 9.2 mg/dL (8.4-10.2); CARBON DIOXIDE 25 mmol/L (22-30); CHLORIDE 108 mmol/L (98-107); GLUCOSE 104 mg/dL (75-110); POTASSIUM 4.4 mmol/L (3.6-5.0); TOTAL PROTEIN 7.3 g/dL (6.3-8.2)
--- NOTE | 2019-04-06 03:02 | RADIOLOGY REPORT (SQ) ---
EXAM DESCRIPTION: XR CHEST 1 VIEW COMPLETED DATE/TME: 04/06/2019 02:16 CLINICAL HISTORY: 38 years Male, chest pain COMPARISON:Jul 25 2016 NUMBER OF VIEWS/TECHNIQUE: 1/AP FINDINGS: Increased lung volume, clear parenchyma, normal cardiac silhouette, and intact bony thorax. IMPRESSION: No acute cardiopulmonary findings.
[2019-04-06 04:53] VITALS: BP 116/83
--- NOTE | 2019-04-06 06:45 | EKG REPORT ---
SEVERITY:- NORMAL ECG - SINUS RHYTHM : Confirmed by: Kenan Ansari MD 06-Apr-2019 06:44:48
== END 2019-04-06 05:04 | disposition home or self-care (01) ==
LOC: ER 00:21
DX: R07.9 Chest pain, unspecified (principal); L40.9 Psoriasis, unspecified; R11.2 Nausea with vomiting, unspecified; R19.7 Diarrhea, unspecified; F17.200 Nicotine dependence, unspecified, uncomplicated; F12.10 Cannabis abuse, uncomplicated; Z87.01 Personal history of pneumonia (recurrent)
CPT/HCPCS: 36415; 71045; 80053; 83690; 84484; 85025; 93005; 93010; 99285

== ENCOUNTER 2019-07-27 14:17 | Emergency (ER) | payer SELFPAY ==
[2019-07-27 14:32] VITALS: BP 151/92
--- NOTE | 2019-07-27 15:07 | ER Document Report ---
ED Medical Screen (RME) - General Chief Complaint: Congestion Stated Complaint: CONGESTION/HEADACHE/FEVER/SORE THROAT Notes: Patient is a 38-year-old -[place] male with a past medical history of "pneumonia" who presents to the emergency department with a chief complaint of cough for the past 3 days. He states it is a dry cough. Associated with nasal congestion, intermittent headaches and sore throat. States is not getting any worse but not getting any better. He feels he might had a fever on the first day of illness but none since. He denies any recent travel or known sick contacts. I have treated and performed a rapid initial assessment of this patient. A comprehensive ED assessment and evaluation of the patient, analysis of test results and completion of medical decision making process will be conducted by additional ED providers. PHYSICAL EXAMINATION: GENERAL: Well-appearing, well-nourished and in no acute distress. A&Ox4. Answers questions appropriately. TRAVEL OUTSIDE OF THE [place] IN LAST 30 DAYS: No - Related Data Allergies/Adverse Reactions: No Known Allergies Allergy (Verified 07/27/19 15:01) Past Medical History - Social History Chew tobacco use (# tins/day): No Drug Abuse: Marijuana Pulmonary Medical History: Reports: Hx Pneumonia Renal/ Medical History: Denies: Hx Peritoneal Dialysis Physical Exam - Vital signs Vitals: Temp Pulse Resp BP Pulse Ox 98.2 F 103 H 20 151/92 H 97 07/27/19 14:30 07/27/19 14:30 07/27/19 14:30 07/27/19 14:30 07/27/19 14:30 Course - Vital Signs Vital signs: Temp Pulse Resp BP Pulse Ox 98.2 F 103 H 20 151/92 H 97 07/27/19 14:30 07/27/19 14:30 07/27/19 14:30 07/27/19 14:30 07/27/19 14:30
--- NOTE | 2019-07-27 15:31 | RADIOLOGY REPORT (SQ) ---
EXAM DESCRIPTION: CHEST 2 VIEWS COMPLETED DATE/TIME: 07/27/2019 3:22 pm REASON FOR STUDY: cough COMPARISON: 04/06/2019 EXAM PARAMETERS: NUMBER OF VIEWS: two views TECHNIQUE: Digital Frontal and Lateral radiographic views of the chest acquired. RADIATION DOSE: NA LIMITATIONS: none FINDINGS: LUNGS AND PLEURA: No opacities, masses or pneumothorax. No pleural effusion. MEDIASTINUM AND HILAR STRUCTURES: No masses or contour abnormalities. HEART AND VASCULAR STRUCTURES: Heart normal size. No evidence for failure. BONES: No acute findings. HARDWARE: None in the chest. OTHER: No other significant finding. IMPRESSION: NO ACUTE RADIOGRAPHIC FINDING IN THE CHEST. TECHNICAL DOCUMENTATION: JOB ID: [id number] 2010 [employer]- All Rights Reserved Reading location - IP/workstation name: [email or web address]
[2019-07-27] MEDS ORDERED: LIDOCAINE 2% VISCOUS SOLN 15 ML UDCUP PO ONE (16:14)
[2019-07-27 17:09] LABS: A TYPE INFLUENZA AG NEGATIVE (NEGATIVE); B INFLUENZA AG NEGATIVE (NEGATIVE)
--- NOTE | 2019-07-27 17:33 | ER Document Report ---
ED General - General Chief Complaint: Congestion Stated Complaint: CONGESTION/HEADACHE/FEVER/SORE THROAT Notes: Patient is a 38-year-old -[place] male with a past medical history of "pneumonia" who presents to the emergency department with a chief complaint of sore throat for the past 3 days. States is painful to tolerate any oral intake. Palliated by nothing. Associated with nasal congestion and cough. Denies any known fever chills or night sweats. No abdominal pain chest pain or shortness of breath. TRAVEL OUTSIDE OF THE [place] IN LAST 30 DAYS: No - Related Data Allergies/Adverse Reactions: No Known Allergies Allergy (Verified 07/27/19 15:01) Past Medical History - Social History Smoking Status: Current Every Day Smoker Chew tobacco use (# tins/day): No Drug Abuse: Marijuana Family History: Malignancy Patient has suicidal ideation: No Patient has homicidal ideation: No Pulmonary Medical History: Reports: Hx Pneumonia Renal/ Medical History: Denies: Hx Peritoneal Dialysis Review of Systems - Review of Systems EENT: Nose congestion, Throat pain Respiratory: Cough Neurological/Psychological: Headaches -: Yes All other systems reviewed and negative Physical Exam - Vital signs Vitals: Temp Pulse Resp BP Pulse Ox 98.2 F 103 H 20 151/92 H 97 07/27/19 14:30 07/27/19 14:30 07/27/19 14:30 07/27/19 14:30 07/27/19 14:30 - General General appearance: Appears well, Alert In distress: None - HEENT Head: Normocephalic, Atraumatic Eyes: Normal Conjunctiva: Normal Extraocular movements intact: Yes Eyelashes: Normal Pupils: PERRL Ears: Normal External canal: Normal Tympanic membrane: Normal Sinus: Normal Nasal: Normal Mouth/Lips: Normal Mucous membranes: Normal Pharynx: Erythema. No: Exudate, Peritonsillar abscess Neck: Normal, Lymphadenopathy, Supple - Respiratory Respiratory status: No respiratory distress Chest status: Nontender Breath sounds: Normal Chest palpation: Normal - Cardiovascular Rhythm: Regular Heart sounds: Normal auscultation Murmur: No - Abdominal Inspection: Normal Distension: No distension Bowel sounds: Normal Tenderness: Nontender Organomegaly: No organomegaly - Neurological Neuro grossly intact: Yes Cognition: Normal Orientation: AAOx4 [place] Coma Scale Eye Opening: Spontaneous [place] Coma Scale Verbal: Oriented [place] Coma Scale Motor: Obeys Commands [place] Coma Scale Total: 15 Speech: Normal - Psychological Associated symptoms: Normal affect, Normal mood - Skin Skin Temperature: Warm Skin Moisture: Dry Skin Color: Normal Course - Re-evaluation Re-evalutation: 07/27/19 17:35 Positive strep test. Patient given lidocaine oropharyngeal solution and amoxicillin. Counseled him regarding the importance of outpatient follow-up and advised to return here or any ER immediately with any new, persistent or worsening symptoms. He verbalized understood and agreed. - Vital Signs Vital signs: Temp Pulse Resp BP Pulse Ox 98.2 F 103 H 20 151/92 H 97 07/27/19 14:30 07/27/19 14:30 07/27/19 14:30 07/27/19 14:30 07/27/19 14:30 Discharge - Discharge Clinical Impression: Strep throat Condition: Stable Disposition: HOME, SELF-CARE Instructions: Strep Throat ([facility]) Additional Instructions: Follow-up with your regular doctor in 2 to 3 days for reevaluation. Return here or any ER immediately with any new, persistent or worsening symptoms. Prescriptions: Amoxicillin Trihydrate [Amoxil 500 mg Capsule] 500 mg PO BID 7 Days #20 capsule Lidocaine HCl [Xylocaine 2% Viscous Soln 15 ml Udcup] 15 ml MM Q6 PRN #12 udc PRN Reason:
== END 2019-07-27 17:46 | disposition home or self-care (01) ==
LOC: ER 14:17
DX: J02.0 Streptococcal pharyngitis (principal); R09.81 Nasal congestion; R05 Cough; R51 Headache; F12.10 Cannabis abuse, uncomplicated; F17.200 Nicotine dependence, unspecified, uncomplicated; Z87.01 Personal history of pneumonia (recurrent)
CPT/HCPCS: 99283; 87880; 87804; 71046; J3490

== ENCOUNTER 2019-11-06 16:56 | Emergency (ER) | payer SELFPAY ==
[2019-11-06 17:20] LABS: HEMATOCRIT 50.9 % (37.9-51.0); HEMOGLOBIN 17.1 g/dL (13.5-17.0); MEAN CORPUSCULAR HEMOGLOBIN 27.5 pg (27.0-33.4); MEAN CORPUSCULAR HGB CONC 33.5 g/dL (32.0-36.0); MEAN CORPUSCULAR VOLUME 82 fl (80-97); PLATELET COUNT 297 10^3/uL (150-450); RED BLOOD COUNT 6.22 10^6/uL (4.35-5.55); RED CELL DISTRIBUTION WIDTH 15.7 % (11.5-14.0); WHITE BLOOD COUNT 7.9 10^3/uL (4.0-10.5)
[2019-11-06 17:42] LABS: ALBUMIN 3.9 g/dL (3.5-5.0); ALKALINE PHOSPHATASE 61 U/L (38-126); ANION GAP 6 (5-19); ASPARTATE AMINO TRANSFERASE 40 U/L (17-59); BILIRUBIN,TOTAL 0.2 mg/dL (0.2-1.3); BLOOD UREA NITROGEN 14 mg/dL (7-20); CALCIUM 9.3 mg/dL (8.4-10.2); CARBON DIOXIDE 28 mmol/L (22-30); CHLORIDE 103 mmol/L (98-107); CREATINE KINASE 169 U/L (55-170); GLUCOSE 100 mg/dL (75-110); POTASSIUM 4.6 mmol/L (3.6-5.0); TOTAL PROTEIN 7.2 g/dL (6.3-8.2)
[2019-11-06 17:48] LABS: ABSOLUTE LYMPHOCYTES# (MANUAL) 2.4 10^3/uL (0.5-4.7); ABSOLUTE MONOCYTES # (MANUAL) 0.3 10^3/uL (0.1-1.4); BASOPHILS % (MANUAL) 0 % (0-2); EOSINOPHILS % (MANUAL) 24 % (0-6); LYMPHOCYTES % (MANUAL) 29 % (13-45); MONOCYTES % (MANUAL) 4 % (3-13); SEGMENTED NEUTROPHILS % (MAN) 41 % (42-78); TOTAL CELLS COUNTED 100
[2019-11-06 17:49] LABS: ANISOCYTOSIS SLIGHT; POIKILOCYTOSIS SLIGHT; TARGET CELLS SLIGHT
[2019-11-06 17:50] LABS: PLATELET COMMENT ADEQUATE
[2019-11-06 17:54] LABS: TROPONIN I < 0.012 ng/mL
--- NOTE | 2019-11-06 19:00 | ER Document Report ---
ED Medical Screen (RME) - General Chief Complaint: Chest Pain Stated Complaint: CHEST PAIN/SHORTNESS OF BREATH Time Seen by Provider: 11/06/19 18:48 TRAVEL OUTSIDE OF THE [place] IN LAST 30 DAYS: No - HPI Notes: 11/06/19 18:56 38-year-old male presents to the emergency room for complaints of chest pain for the last 2 days, states it goes between left-sided and substernal, worse with coughing. Patient states that he has had shortness of breath and mucus for the last week. States he is a quarter to half a pack a day smoker for over 20 years. Patient states that in his 20s he did a lot of cocaine and he did sustain an arrhythmia from this, his last episode with cocaine was last week, states he usually smokes marijuana. Denies any cardiac issues with his mother father, both are living. No history of having a heart attack or stroke. I have greeted and performed a rapid initial assessment of this patient. A comprehensive ED assessment and evaluation of the patient, analysis of test results and completion of the medical decision making process will be conducted by additional ED providers. PHYSICAL EXAMINATION: GENERAL: Well-appearing, well-nourished and in no acute distress. HEAD: Atraumatic, normocephalic. EYES: Pupils equal round extraocular movements intact, conjunctiva are normal. NECK: Normal range of motion CV: s1, s2 regular LUNGS: No respiratory distress Musculoskeletal: Normal range of motion NEUROLOGICAL: Normal speech, normal gait. SKIN: Warm, Dry, normal turgor, no rashes or lesions noted. 11/06/19 18:58 - Related Data Allergies/Adverse Reactions: No Known Allergies Allergy (Verified 07/27/19 15:01) Past Medical History Pulmonary Medical History: Reports: Hx Pneumonia Renal/ Medical History: Denies: Hx Peritoneal Dialysis Physical Exam - Vital signs Vitals: Temp Pulse Resp BP Pulse Ox 99.5 F 80 18 134/93 H 96 11/06/19 17:12 11/06/19 17:12 11/06/19 17:12 11/06/19 17:12 11/06/19 17:12 Course - Vital Signs Vital signs: Temp Pulse Resp BP Pulse Ox 99.5 F 80 18 134/93 H 96 11/06/19 17:12 11/06/19 17:12 11/06/19 17:12 11/06/19 17:12 11/06/19 17:12 - Laboratory Result Diagrams: 11/06/19 17:10 11/06/19 17:10 Laboratory results interpreted by me: 11/06/19 11/06/19 17:10 17:10 RBC 6.22 H Hgb 17.1 H RDW 15.7 H Seg Neuts % (Manual) 41 L Eosinophils % (Manual) 24 H Absolute Eos (Manual) 1.9 H Sodium 136.5 L ALT 60 H
--- NOTE | 2019-11-06 19:24 | EKG REPORT ---
SEVERITY:- ABNORMAL ECG - SINUS RHYTHM : Confirmed by: Bianca Quesada 06-Nov-2019 19:24:16
--- NOTE | 2019-11-06 19:32 | RADIOLOGY REPORT (SQ) ---
EXAM DESCRIPTION: CHEST 2 VIEWS IMAGES COMPLETED DATE/TIME: 11/06/2019 6:11 pm REASON FOR STUDY: cp and sob COMPARISON: 07/27/2019 EXAM PARAMETERS: NUMBER OF VIEWS: two views TECHNIQUE: Digital Frontal and Lateral radiographic views of the chest acquired. RADIATION DOSE: NA LIMITATIONS: none FINDINGS: LUNGS AND PLEURA: No opacities, masses or pneumothorax. No pleural effusion. MEDIASTINUM AND HILAR STRUCTURES: No masses or contour abnormalities. HEART AND VASCULAR STRUCTURES: Heart normal size. No evidence for failure. BONES: No acute findings. HARDWARE: None in the chest. OTHER: No other significant finding. IMPRESSION: NO ACUTE RADIOGRAPHIC FINDING IN THE CHEST. TECHNICAL DOCUMENTATION: JOB ID: [id number] 2010 [employer]- All Rights Reserved Reading location - IP/workstation name: [email or web address]
[2019-11-06] MEDS ORDERED: NITROGLYCERIN 0.4 MG/TAB 25 TAB/BOTTLE SL PRN (21:20)
[2019-11-06] MEDS ORDERED: NORMAL SALINE 1000 ML 1,000 ML IV ONE (21:21)
[2019-11-06 22:00] LABS: APPEARANCE,URINE CLEAR; BILIRUBIN,URINE NEGATIVE (NEGATIVE); COLOR,URINE YELLOW; GLUCOSE, URINE NEGATIVE (NEGATIVE); KETONES,URINE NEGATIVE (NEGATIVE); LEUKOCYTE ESTERASE,URINE NEGATIVE (NEGATIVE); NITRITE,URINE NEGATIVE (NEGATIVE); PROTEIN,URINE NEGATIVE (NEGATIVE); URINE SPECIFIC GRAVITY 1.021; UROBILINOGEN,URINE NEGATIVE mg/dL (<2.0)
[2019-11-06 22:17] LABS: URINE AMPHETAMINES SCREEN NEGATIVE; URINE BARBITURATES SCREEN NEGATIVE; URINE BENZODIAZEPINES SCREEN NEGATIVE; URINE COCAINE SCREEN UNCONFIRMED POSITIVE; URINE MARIJUANA (THC) SCREEN NEGATIVE; URINE METHADONE SCREEN NEGATIVE; URINE PHENCYCLIDINE SCREEN NEGATIVE
--- NOTE | 2019-11-06 22:38 | ER Document Report ---
ED General - General Chief Complaint: Chest Pain Stated Complaint: CHEST PAIN/SHORTNESS OF BREATH Time Seen by Provider: 11/06/19 18:48 TRAVEL OUTSIDE OF THE [place] IN LAST 30 DAYS: No - HPI Notes: Patient is a 38-year-old male who presents to the emergency department for evaluation of cough, congestion, chest pain. He states that for the last week he has had chills, cough. No tino fevers to his knowledge. Over the last 3 days he developed chest pain with cough. He describes it as sharp, worsened with coughing. Nothing seems to make it better. He denies any nausea, but has had some posttussive emesis. The patient admits he had an old prescription for antibiotics, states he took those for a few days. He has some loose stools after that, but discontinued the old antibiotics, and his stools have improved. He denies any abdominal pain. No recent travel. No known COVID-19 exposures. Patient does admit to recent cocaine use. 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 Head is normocephalic, atraumatic. Pupils equal round, reactive to light. Neck is supple without meningismus. Heart is regular rate and rhythm. Lungs revealed mild rhonchi which clear with coughing, otherwise clear to auscultation bilaterally. Chest wall excursion is equal bilaterally, chest wall nontender. Abdomen is soft, nontender, normoactiv e bowel sounds throughout. Extremities without cyanosis, clubbing. Posterior calves are nontender. Peripheral pulses are equal. Skin is warm and dry. Patient is awake, alert, neurological exam is nonfocal. Course - Re-evaluation Re-evalutation: 11/06/19 22:36 Patient presents to the emergency department for evaluation. He was initially seen through triage. He had laboratory investigations as ordered. I am concerned about the possibility of COVID-19 in this patient. He said chills, cough. Is likely that the diarrhea was antibiotic induced. COVID-19 testing is ordered. Patient's laboratory investigation is otherwise unremarkable. Chest x-ray shows no signs of pneumonia. Patient is oxygenating well. He does have some rhonchi, I will send him with some albuterol to see if this helps his cough and shortness of breath. He is strongly encouraged to quit smoking quit the use of cocaine. He voices understanding to this. Awaiting second troponin. Assuming it comes back is unremarkable, the patient will be sent home as a PUI, will be referred to follow-up with primary care. He is to return to the ED with worsening. 11/06/19 23:13 Patient's second troponin is negative. He is told to quit using cocaine. He will be sent with a prescription for albuterol. He is told to self isolate until COVID-19 swab is resulted. He is to follow-up with primary care, return to the emergency department with worsening or new concerning symptoms of any sort. - Vital Signs Vital signs: Temp Pulse Resp BP Pulse Ox 99.4 F 87 20 126/93 H 98 11/06/19 21:30 11/06/19 20:54 11/06/19 22:01 11/06/19 22:00 11/06/19 22:01 - Laboratory Result Diagrams: 11/06/19 17:10 11/06/19 17:10 Laboratory results interpreted by me: 11/06/19 11/06/19 17:10 17:10 RBC 6.22 H Hgb 17.1 H RDW 15.7 H Seg Neuts % (Manual) 41 L Eosinophils % (Manual) 24 H Absolute Eos (Manual) 1.9 H Sodium 136.5 L ALT 60 H - Diagnostic Test Radiology reviewed: Image reviewed, Reports reviewed Radiology results interpreted by me: 11/06/19 22:37 Chest X-Ray 11/06/19 18:54 IMPRESSION: NO ACUTE RADIOGRAPHIC FINDING IN THE CHEST. - EKG Interpretation by Me Additional EKG results interpreted by me: 11/06/19 22:38 Sinus mechanism with a rate of 84 bpm. Normal axis and intervals. J-point elevation with resultant ST elevation, likely secondary to early repolarization. Largely unchanged from prior studies. Discharge - Discharge Clinical Impression: Chest wall pain, Suspected COVID-19 virus infection Upper respiratory infection Qualifiers: URI type: unspecified viral URI Qualified Code(s): J06.9 - Acute upper respiratory infection, unspecified Condition: Stable Disposition: HOME, SELF-CARE Instructions: Chest Wall Pain ([facility]), Viral Syndrome ([facility]), Upper Respiratory Illness ([facility]) Additional Instructions: You have been tested for COVID-19. Please self isolate until you are contacted with results. Rest. Albuterol as needed for cough/shortness of breath. Stay well-hydrated. Please abstain from the use of tobacco and illegal drugs. Follow-up with primary care next week. Tylenol as needed for chest wall pain. If you develop increased pain, shortness of breath, or any other new or concerning symptoms, please return immediately to the emergency department for evaluation. Forms: Smoking Cessation Education
[2019-11-06 23:33] VITALS: BP 138/102
--- NOTE | 2019-11-07 22:04 | EKG REPORT ---
SEVERITY:- NORMAL ECG - SINUS RHYTHM ST ELEV, PROBABLE NORMAL EARLY REPOL PATTERN : Confirmed by: Bianca Quesada 07-Nov-2019 22:03:33
== END 2019-11-06 23:33 | disposition home or self-care (01) ==
LOC: ER 16:56
DX: J06.9 Acute upper respiratory infection, unspecified (principal); R07.89 Other chest pain; R06.02 Shortness of breath; F17.200 Nicotine dependence, unspecified, uncomplicated; Z20.828 Contact with and (suspected) exposure to other viral communicable diseases
CPT/HCPCS: 93005; 99284; 96360; 36415; 82553; 82550; 83735; 84443; 85025; 87635; 80053; 81001; 84484; 80307; 71046; 93010; J7030; C9803